=== PATIENT | female | born 1945 | race Caucasian/White ===

== ENCOUNTER 2020-09-26 10:26 | Inpatient (IN) ==
[2020-09-26] MEDS ORDERED: IOPAMIDOL 100 ML BOTTLE IV ONE (10:27)
[2020-09-26] MEDS ORDERED: ACETAMINOPHEN 325 MG TABLET PO ONE (10:45)
[2020-09-26] MEDS ORDERED: 0.9 % SODIUM CHLORIDE 1,000 ML IV ONE (10:45)
--- NOTE | 2020-09-26 10:54 | Emergency Department Note ---
Fall HPI General Chief Complaint: Fall Stated Complaint: abdominal pain Time Seen by Provider: 09/26/20 10:33 Source: patient Mode of arrival: ambulatory Limitations: no limitations History of Present Illness HPI Narrative: Narrative: 75-year-old female patient presents emergency department with chief complaint of diffuse abdominal pain after falling. Patient mentions she was stepping onto a stair (approximately 6-8 inches) when she became somewhat unstable and fell backwards. She landed onto asphalt. She does mention striking her head but denies loss of consciousness. Upon arrival, patient mentions diffuse abdominal pain worse to the lower aspects. She does mention lower back pain as well. She describes the pain is extending from her posterior to anterior. She denies any saddle anesthesia. She denies any bowel/bladder incontinence. ROS: Denies systemic illness, fever, sweats, chills. Denies headaches, tinnitus, or vision changes. Denies runny nose, sinus congestion, or cough. Denies shortness of breath. Denies retrosternal chest pain or palpitations. Denies nausea, vomiting, or diarrhea. Denies dysuria, hematuria, urinary frequency, or urinary urgency. Denies generalized or focal weakness. Related Data Home Medications Medication Instructions Recorded Confirmed enalapril maleate 20 mg tablet 20 mg PO QDAY 09/18/17 09/26/20 ferrous sulfate 324 mg (65 mg 324 mg PO QDAY tab 09/18/17 09/26/20 iron) tablet,delayed release zenia citrate-mag ox,aspart-D3 1 each PO DAILY 10/20/19 09/26/20 Previous Rx's Medication Instructions Recorded nitrofurantoin monohyd/m-cryst 100 mg PO Q12H 5 Days #10 cap 09/26/20 [Macrobid] Allergies Allergy/AdvReac Type Severity Reaction Status Date / Time No Known Drug Allergies Allergy Verified 10/20/19 07:02 Review of Systems ROS ROS Narrative: Narrative: All systems ED: reviewed and negative except as stated. [facility] Narrative Patient History Narrative: Narrative: Medical/Surgical/Family History All Active Problems (Updated 09/26/20 @ 12:56 by Emerson Lawson PA-C) Urinary tract infection (Acute) Concussion without loss of consciousness (Acute) At high risk for falls (Acute) Infiltrate of lung present on imaging of chest (Acute) Osteoporosis (Chronic) Schizophrenia (Chronic) Anemia (Chronic) Swelling of limb (Chronic) Hypertension, essential (Chronic) Breast cancer, stage 2 (Chronic ~2013) Medical History (Updated 09/26/20 @ 12:56 by Emerson Lawson PA-C) Anemia (Chronic) Breast cancer, stage 2 (Chronic ~2013) History of adenomatous polyp of colon (Inactive ~2013) none w/ colonoscopy 2019, Dr. Gann. History of chemotherapy (Inactive) for lobular carcinoma, met to 08/23 lymph nodes R axillary, 2013. Adjuvant docetaxel, cyclophosphamide; then Letrazole until 2019. History of radiation therapy (Acute) right side of chest; lobular carcinoma breast. Hypertension, essential (Chronic) Infiltrating ductal carcinoma of breast (Inactive ~11/2013) LEFT side (simultaneous lobular carcinoma right) Invasive lobular carcinoma of breast, stage 1 (Inactive ~11/2013) RIGHT side (simultaneous ductal carcinoma left) Lump or mass in breast (Resolved) Osteoporosis (Chronic) Noted in oncology notes; patient was on letrozole chemo suppressive until 2019. Schizophrenia (Chronic) Swelling of limb (Chronic) lymphedema - s/p mastectomy, lymphadenectomy R axilla. Surgical History (Updated 09/26/20 @ 10:55 by Cristobal Case DO) H/O colonoscopy (Chronic 10/20/19) negative; no polyps. Consider in 10 yrs if prognosis life expectancy warrants. History of tonsillectomy (Chronic) S/P mastectomy, bilateral (Chronic ~2013) Family History Brother Prostate cancer Other No pertinent family history Social History Smoking Status: Never smoker Alcohol Intake Frequency: does not drink Substance Use: does not use Exam Narrative Narrative: Narrative: General Limitations: no limitations General appearance: Present other (Well-developed, well-nourished, 75-year-old female patient laying semirecumbent on the emergency room gurney in no acute distress. She is afebrile with normal vital signs.) Head Head: Present atraumatic and normocephalic Expanded Head Head physical: Absent raccoon eyes and Mary's sign Eye Eye: Present normal appearance, PERRL and EOMI; Absent scleral icterus and conjunctival injection ENT ENT: Present normal oropharynx and mucous membranes moist Neck Neck: Present normal inspection, full ROM and trachea midline; Absent tenderness and lymphadenopathy Chest Chest: Present normal inspection and symmetric chest wall rise; Absent tenderness Respiratory Respiratory: Present normal lung sounds bilaterally; Absent respiratory distress, wheezes, stridor, accessory muscle use and prolonged expiratory phase Cardiovascular Cardiovascular: Present regular rate and normal rhythm; Absent systolic murmur and diastolic murmur Adbominal Abdominal: Present soft, tenderness and normal bowel sounds; Absent distention, guarding, rebound, rigidity, organomegaly and mass Expanded Abdominal Abdominal Tenderness: Present diffuse and moderate Extremities Extremities: Present full ROM and normal capillary refill; Absent normal inspection (Right upper extremity unilaterally edematous. This is known for the patient and unchanged from the fall.), tenderness and pedal edema Back Back: Present normal inspection and L-S tenderness Back 1 view image: 1. Area of pain. Expanded Neurological Patient oriented to: Present person, place and time Speech: Present fluid speech CRANIAL NERVES: EOM function (II, III, IV, ): Normal, facial sensation (V): Normal, facial palsy (VII): Normal, gag reflex (IX): Normal, spinal accessory function (XI): Normal and tongue deviation (XII): Normal Motor strength - LUE: 5/5 Motor strength - RUE: 5/5 Motor strength - LLE: 5/5 Motor strength - RLE: 5/5 UPPER MOTOR NEURON EXAM: pronator drift: Normal SENSORY EXAM UPPER EXTREMITY: Normal: light touch SENSORY EXAM LOWER EXTREMITY: Normal: light touch DTR: 2+: biceps (L), biceps (R), patellar (L) and patellar (R) Coma Scale Eye Opening: Spontaneous Coma Scale Motor Response: Obeys Commands Coma Scale Verbal Response: Oriented Coma Scale Total: 15 Psychiatric Psychiatric: Present normal affect and normal mood Skin Skin: Present warm (WNL), dry and normal color Course Course Course Narrative: The differential diagnosis of diffuse abdominal pain in the adult patient is broad and includes the following: Bowel obstruction, perforation of the GI tract, acute/chronic mesenteric ischemia, abdominal aortic aneurysm (AAA), inflammatory bowel disease (ulcerative colitis/Crohn disease), viral gastroenteritis, spontaneous bacterial peritonitis, colorectal cancer, celiac disease, ketoacidosis, adrenal insufficiency, foodborne illness, IBS, constipation, diverticulosis, and lactose intolerance. This patient differential diagnosis would also include mechanical musculoskeletal injury such as vertebral compression fracture or rib fracture. Patient sustained a mechanical fall from standing. She was elevated approximately 6-8 inches and fell backwards onto asphalt. She does mention striking her head but not losing consciousness. She is complaining of back/abdominal pain. She mentions that the pain is extending from her posterior to anterior. We are going to get CT scan of her head without contrast. We are going to obtain a contrast-enhanced CT scan of her abdomen/pelvis look for a ca use of her pain. I will check her kidney functions prior to this study to determine if they are starting to handle contrast. Will order some screening laboratory studies. Patient was given normal saline 1000 mL of the bolus. She normally uses acetaminophen for pain so we will start there with 975 mg p.o. Reevaluation(s) Reevaluation #1: A review the patient's diagnostics show the following: CBC within normal limits. Chemistry panel BUN 30, glucose 136, all others normal limits. UA showing clear yellow urine specific gravity 1.023, positive ketonuria, positive nitrites, positive leukocyte Estrace, positive WBCs, mo derate bacteria, and positive mucus. This sample be sent for culture. Noncontrast head CT scan showing a negative study. Contrast-enhanced CT scan of the chest, abdomen, pelvis showing large hiatal hernia containing stomach small bowel, mild groundglass opacity within the right lower lobe and right upper lobe. Radiologist does mention clinical correlation for Covid pneumonia recommended. There is no posttraumatic abnormality seen. After reviewing all the data a rapid Covid swab was obtained. Time: 12:09 Reevaluation #2: Rapid Covid and influenza swabs were negative. After reviewing all the data home at time does appear the patient has during UTI. I concerning the's chest CT scan findings patient had a negative Covid and influenza swab. She is asymptomatic, afebrile, and without cough. She is showing no outward signs of pneumonia at this time. It was thought best to treat her for the UTI which can make elderly people somewhat unsteady. It was recommended that she have repeat chest imaging within a week or so to ensure that the infiltrates have not changed. At this time patient has been to be started on Macrobid 100 mg twice daily for a 5-day course until the results of her culture and sensitivity are known. She was encouraged to use some form of assistive devices whether be a cane or a walker at all times while up moving about. She continues to complain of incredible pain throughout her back with movement. I explained my hesitancy of prescribing her something stronger (narcotics) for pain due to the increased risk of falling. She was encouraged to continue taking OTC analgesics for her pain. Patient was told to follow-up with her primary care provider within the next week or so. She was strongly encouraged to return to the emergency department at any time if she were to change or worsen in someway. Patient verbalized understanding. She has remained stable.her entire time in the emergency department. Her last set of vital signs are as follows: Blood pressure 141/82, heart rate 87, SPO2 92% on room air. Patient is going to be discharged with following plan. Vital Signs Vital signs: Vital Signs Temperature 97.2 F 09/26/20 10:26 Pulse Rate 92 H 09/26/20 10:26 Respiratory Rate 18 09/26/20 10:26 Blood Pressure 155/81 09/26/20 10:26 Pulse Oximetry (%) 92 09/26/20 10:26 Temperature 97.2 F 09/26/20 10:26 Pulse Rate 83 09/26/20 12:01 Respiratory Rate 18 09/26/20 10:26 Blood Pressure 153/83 09/26/20 12:01 Pulse Oximetry (%) 93 09/26/20 12:01 MDM MDM Narrative Medical decision making narrative: Narrative: Lab Data Lab results reviewed: Yes I reviewed the patient's lab results. Result diagrams: 09/26/20 10:54 Labs: Lab Results 09/26/20 09/26/20 09/26/20 Range/Units 10:54 10:54 11:00 WBC 7.7 (4.5-11.0) K/mcL RBC 4.57 (4.00-5.20) M/mcL Hgb 14.2 (12.0-15.0) g/dL Hct 43.3 (36.0-48.0) % POC Hct 47 (36-48) % MCV 94.7 (80.0-100.0) fL MCH 31.1 (26.0-34.0) pg MCHC 32.8 (31.0-36.0) g/dL RDW 12.1 (11.5-14.5) % Plt Count 189 (140-440) K/mcL MPV 10.8 H (7.4-10.4) fL Neut % (Auto) 72.9 (38.0-78.0) % Lymph % (Auto) 20.4 (15.0-49.0) % [place] % (Auto) 5.8 (1.0-12.0) % Eos % (Auto) 0.5 (0.0-7.0) % Baso % (Auto) 0.4 (0.0-2.0) % Lymph # (Auto) 1.57 (1.50-4.80) K/mcL [place] # (Auto) 0.45 (0.10-0.90) K/mcL Eos # (Auto) 0.04 (0.00-0.70) K/mcL Baso # (Auto) 0.03 (0.00-0.20) K/mcL Absolute Neutrophils 5.61 (1.80-8.00) K/mcL POC Sodium 140 (133-145) mEq/L POC Potassium 4.1 (3.3-5.1) mEql/L POC Chloride 105 (96-108) mEq/L POC Total CO2 28 (22-30) mmol/L POC BUN 30 H (6-20) mg/dL POC Creatinine 0.7 (0.6-1.2) mg/dL POC Glucose 136 H (70-105) mg/dL POC WB Ioniz Calcium 1.18 (1.16-1.32) mmEq/L Urine Color Yellow Urine Appearance Clear (Clear) Urine pH 5.0 (5.0-9.0) Ur Specific [place] 1.023 (1.000-1.035) Urine Protein Negative (Negative) mg/dL Urine Glucose (UA) Negative (Negative) mg/dL Urine Ketones 5 A (Negative) mg/dL Urine Occult Blood 0.03 (Negative) mg/dL Urine Nitrate Pos A (Negative) Urine Bilirubin Negative (Negative) mg/dL Urine Urobilinogen Negative mg/dL Ur Leukocyte Esterase 75 A (Negative) /ug Urine RBC 5 H (0-3) /hpf Urine WBC 73 H (0-4) /hpf Ur Squamous Epith Cells < 1 (0-4) /hpf Urine Bacteria Mod A (0) /hpf Hyaline Casts 2 (0-2) /lph Urine Mucus Many A (None) /hpf Ur Culture Indicated? yes Radiology Data Radiology results reviewed: Yes I reviewed the patient's radiology results. Radiology results narrative: Ordering Physician: Emerson Lawson PA-C Date of Service: 09/26/20 Procedure(s): CT head/brain wo con Accession Number(s): [id number] INDICATION: Fall onto asphalt and hit head COMPARISON: None. TECHNIQUE: Axial noncontrast-enhanced images through the brain. Sagittally and coronally reformatted images. FINDINGS: Cerebral hemispheres:Negative. No intra-axial abnormality. No intra-axial hematoma. No localized mass effect. Brain volume is within normal limits. No hydrocephalus Brainstem and cerebellum:No intra-axial abnormality Extra-axial:No acute hemorrhage. No subdural or epidural hematoma. No subarachnoid hemorrhage. Basilar cisterns are normal Calvarial:No calvarial fracture. No lytic lesion Temporal bones are negative. No destructive lesions Soft tissue, orbits, sinuses:Orbits and visualized facial soft tissues and paranasal sinuses are negative IMPRESSION: Negative noncontrast enhanced brain CT scan Ordering Physician: Cristobal Case D.O. Date of Service: 09/26/20 Procedure(s): CT chest abdomen pelvis w con Accession Number(s): [id number] INDICATION: fall COMPARISON: None. TECHNIQUE: Axial images were obtained through the chest,abdomen and pelvis. Sagittally and coronally reformatted images. 80ml Isovue 370 injected intravenously. FINDINGS: Chest CT: Lungs:Small focal groundglass infiltrate in the right upper lobe. 2nd small focus of groundglass density in the superior segment of the right lower lobe. Findings are nonspecific. Covid pneumonia is not excluded. No other focal pulmonary parenchymal infiltrate or contusion. There is left lower lobe volume loss and probable mild bronchiectasis. This is probably secondary to compression from a large hiatal hernia Mediastinum:No mediastinal hematoma. Thoracic aorta is negative. No dissection or aneurysmal dilatation. Proximal left subclavian artery, left common carotid artery, innominate artery are markedly tortuous. Proximal right subclavian artery is tortuous. There is no stenosis. There is a large hiatal hernia which contains most of the stomach. There is some jejunum within the hernia. Heart:There is cardiomegaly. No pericardial effusion. There is coronary artery calcification Pleura:There is no pneumothorax or hemothorax Axilla, supraclavicular regions, chest wall:No chest wall hematoma. No acute or focal abnormality. Musculoskeletal:No thoracic compression fracture. No acute rib fracture. There are healed fractures of the left 3rd and 4th ribs. Scapula and clavicles are negative. Sternum is normal. There is exaggerated thoracic kyphosis Abdomen/Pelvis: Liver:No hepatic injury. No hepatic laceration or fracture. No perihepatic hemorrhage Gallbladder, bilary:No calcified gallstones. No gallbladder wall thickening or pericholecystic fluid. No dilated bile ducts Spleen:Spleen is negative. No splenic injury. No perisplenic hemorrhage. Normal enhancement of splenic and portal veins Pancreas:No pancreatic mass. No peripancreatic abnormality. No retroperitoneal abnormality Adrenal glands:Negative Kidneys, ureters, bladder: There is a 4 cm left renal cyst. 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 No posttraumatic abnormality. No renal injury. No perinephric hemorrhage. There is no hydronephrosis. There is no hydroureter. Bladder is negative. No evidence for bladder rupture Gastrointestinal:No detectable colonic mass. There is no diverticulitis. Small bowel is negative. No mechanical small bowel obstruction. Stomach and duodenum are within normal limits Appendix: The appendix is not well visualized. No evidence for appendicitis. Vascular:There is atherosclerotic calcification. No abdominal aortic aneurysm. Celiac trunk and superior mesenteric artery are negative Lymphatic:No pathologic retroperitoneal or mesenteric adenopathy Mesentery, peritoneum:No free intraperitoneal fluid. No intra-abdominal abscess. There is no hemoperitoneum or pneumoperitoneum Reproductive:Uterus is anteflexed. No adnexal mass Musculoskeletal:No lumbar compression fractures. There is degenerative facet arthropathy. Sacrum and pelvis are negative IMPRESSION: 1. Large hiatal hernia containing stomach and small bowel 2. Mild groundglass opacity within the right lower lobe and right upper lobe. Clinical correlation for covid pneumonia recommended 3. No posttraumatic abnormality The exam was performed using radiation dose optimization techniques including, but not limited to, automated exposure control, adjustment of the mA and/or kV according to patient size and use of iterative reconstruction technique. Interpreted and Authenticated by: Servando Toro 09/26/20 Discharge Plan Patient/Caregiver Discharge Instructions Pt seen by MAINTENANCE INSPECTOR/PA only: Yes Clinical Impression: At high risk for falls, Infiltrate of lung present on imaging of chest Urinary tract infection Qualifiers: Urinary tract infection type: site unspecified Hematuria presence: without hematuria Qualified Code(s): N39.0 - Urinary tract infection, site not specified Concussion without loss of consciousness Qualifiers: Encounter type: initial encounter Qualified Code(s): S06.0X0A - Concussion without loss of consciousness, initial encounter Instructions: Concussion (ED), Urinary Tract Infection in Older Adults (ED) Activity Restrictions/Additional Instructions: General Information: - Thank you for letting us take care of you today. - Please understand that the examination and treatment that you received here in our emergency department was on an emergency basis only. Although the care you did receive from us here in the emergency department was of the highest quality, it certainly does not take the place of regular medical care obtained from your primary care provider (PCP). - Rest for the next 23 days. - Afterward, perform activity as tolerated. - Stay well hydrated. - Eat a well balanced diet. Medications: - Macrobid 100 mg, 1 tablet twice daily x5 days. --> We may contact you if we need to change the antibiotic based on your culture and sensitivity report. - OTC acetaminophen 500 mg, 2 tablets every 6-8 hours as needed for pain or fever. - OTC ibuprofen 200 mg, 2 tablets every 8 hours as needed for pain or fever. - Please continue to take all of your previously prescribed, chronic medications, as directed. Follow up: - Please see your Primary Care Provider in the next 7-10 days for an emergency room follow-up visit. I would recommend that repeat chest x-ray be obtained to evaluate whether or not the findings in your chest have changed or worsened. - You are always welcome to return to the emergency department AT ANY TIME if you change or worsen in some way. Patient Disposition: Home, Self-Care Condition: Fair Follow up with: Danisha Perez MD [Primary Care Provider] - Prescriptions: New nitrofurantoin monohyd/m-cryst [Macrobid] 100 mg capsule 100 mg PO Q12H 5 Days Qty: 10 RF: 0 No Action ferrous sulfate 324 mg (65 mg iron) tablet,delayed release (DR/EC) 324 mg PO QDAY RF: 0 enalapril maleate 20 mg tablet 20 mg PO QDAY RF: 0 zenia citrate-mag ox,aspart-D3 1 EACH wafer 1 each PO DAILY RF: 0
[2020-09-26 11:03] LABS: POC Blood Urea Nitrogen 30 mg/dL (6-20); POC CO2 28 mmol/L (22-30); POC Calcium, Ionized 1.18 mmEq/L (1.16-1.32); POC Chloride 105 mEq/L (96-108); POC Creatinine 0.7 mg/dL (0.6-1.2); POC Glucose, Random 136 mg/dL (70-105); POC Hematocrit 47 % (36-48); POC Potassium 4.1 mEql/L (3.3-5.1); POC Sodium 140 mEq/L (133-145)
--- NOTE | 2020-09-26 11:34 | Cat Scan Report ---
INDICATION: Fall onto asphalt and hit head COMPARISON: None. TECHNIQUE: Axial noncontrast-enhanced images through the brain. Sagittally and coronally reformatted images. FINDINGS: Cerebral hemispheres:Negative. No intra-axial abnormality. No intra-axial hematoma. No localized mass effect. Brain volume is within normal limits. No hydrocephalus Brainstem and cerebellum:No intra-axial abnormality Extra-axial:No acute hemorrhage. No subdural or epidural hematoma. No subarachnoid hemorrhage. Basilar cisterns are normal Calvarial:No calvarial fracture. No lytic lesion Temporal bones are negative. No destructive lesions Soft tissue, orbits, sinuses:Orbits and visualized facial soft tissues and paranasal sinuses are negative IMPRESSION: Negative noncontrast enhanced brain CT scan The exam was performed using radiation dose optimization techniques including, but not limited to, automated exposure control, adjustment of the mA and/or kV according to patient size and use of iterative reconstruction technique. Interpreted and Authenticated by: Servando Toro 09/26/20
[2020-09-26 11:41] LABS: Basophils # (Auto) 0.03 K/mcL (0.00-0.20); Basophils % (Auto) 0.4 % (0.0-2.0); Eosinophils # (Auto) 0.04 K/mcL (0.00-0.70); Eosinophils % (Auto) 0.5 % (0.0-7.0); Hematocrit 43.3 % (36.0-48.0); Hemoglobin 14.2 g/dL (12.0-15.0); Lymphocytes # (Auto) 1.57 K/mcL (1.50-4.80); Lymphocytes % (Auto) 20.4 % (15.0-49.0); Mean Cell Volume 94.7 fL (80.0-100.0); Mean Corpuscular HGB Conc 32.8 g/dL (31.0-36.0); Mean Platelet Volume 10.8 fL (7.4-10.4); Monocytes # (Auto) 0.45 K/mcL (0.10-0.90); Monocytes % (Auto) 5.8 % (1.0-12.0); Neutrophils % (Auto) 72.9 % (38.0-78.0); Platelet Count 189 K/mcL (140-440); RBC 4.57 M/mcL (4.00-5.20); Red Cell Distribution Width 12.1 % (11.5-14.5); WBC 7.7 K/mcL (4.5-11.0)
--- NOTE | 2020-09-26 11:47 | Cat Scan Report ---
INDICATION: fall COMPARISON: None. TECHNIQUE: Axial images were obtained through the chest,abdomen and pelvis. Sagittally and coronally reformatted images. 80ml Isovue 370 injected intravenously. FINDINGS: Chest CT: Lungs:Small focal groundglass infiltrate in the right upper lobe. 2nd small focus of groundglass density in the superior segment of the right lower lobe. Findings are nonspecific. Covid pneumonia is not excluded. No other focal pulmonary parenchymal infiltrate or contusion. There is left lower lobe volume loss and probable mild bronchiectasis. This is probably secondary to compression from a large hiatal hernia Mediastinum:No mediastinal hematoma. Thoracic aorta is negative. No dissection or aneurysmal dilatation. Proximal left subclavian artery, left common carotid artery, innominate artery are markedly tortuous. Proximal right subclavian artery is tortuous. There is no stenosis. There is a large hiatal hernia which contains most of the stomach. There is some jejunum within the hernia. Heart:There is cardiomegaly. No pericardial effusion. There is coronary artery calcification Pleura:There is no pneumothorax or hemothorax Axilla, supraclavicular regions, chest wall:No chest wall hematoma. No acute or focal abnormality. Musculoskeletal:No thoracic compression fracture. No acute rib fracture. There are healed fractures of the left 3rd and 4th ribs. Scapula and clavicles are negative. Sternum is normal. There is exaggerated thoracic kyphosis Abdomen/Pelvis: Liver:No hepatic injury. No hepatic laceration or fracture. No perihepatic hemorrhage Gallbladder, bilary:No calcified gallstones. No gallbladder wall thickening or pericholecystic fluid. No dilated bile ducts Spleen:Spleen is negative. No splenic injury. No perisplenic hemorrhage. Normal enhancement of splenic and portal veins Pancreas:No pancreatic mass. No peripancreatic abnormality. No retroperitoneal abnormality Adrenal glands:Negative Kidneys, ureters, bladder: There is a 4 cm left renal cyst. 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 No posttraumatic abnormality. No renal injury. No perinephric hemorrhage. There is no hydronephrosis. There is no hydroureter. Bladder is negative. No evidence for bladder rupture Gastrointestinal:No detectable colonic mass. There is no diverticulitis. Small bowel is negative. No mechanical small bowel obstruction. Stomach and duodenum are within normal limits Appendix: The appendix is not well visualized. No evidence for appendicitis. Vascular:There is atherosclerotic calcification. No abdominal aortic aneurysm. Celiac trunk and superior mesenteric artery are negative Lymphatic:No pathologic retroperitoneal or mesenteric adenopathy Mesentery, peritoneum:No free intraperitoneal fluid. No intra-abdominal abscess. There is no hemoperitoneum or pneumoperitoneum Reproductive:Uterus is anteflexed. No adnexal mass Musculoskeletal:No lumbar compression fractures. There is degenerative facet arthropathy. Sacrum and pelvis are negative IMPRESSION: 1. Large hiatal hernia containing stomach and small bowel 2. Mild groundglass opacity within the right lower lobe and right upper lobe. Clinical correlation for covid pneumonia recommended 3. No posttraumatic abnormality The exam was performed using radiation dose optimization techniques including, but not limited to, automated exposure control, adjustment of the mA and/or kV according to patient size and use of iterative reconstruction technique. The exam was performed using radiation dose optimization techniques including, but not limited to, automated exposure control, adjustment of the mA and/or kV according to patient size and use of iterative reconstruction technique. Interpreted and Authenticated by: Servando Toro 09/26/20
[2020-09-26 12:14] LABS: Appearance,Urine CLEAR (Clear); Bacteria,Urine MOD /hpf (0); Bilirubin,Urine Negative (Negative); Color,Urine YELLOW; Culture Indicated,Urine yes; Glucose,Urine (UA) Negative (Negative); Ketones,Urine 5 mg/dL (Negative); Leukocyte Esterase,Urine 75 /ug (Negative); Mucus,Urine MANY /hpf; Nitrate,Urine POS (Negative); Protein,Urine Negative (Negative); Specific Gravity,Urine 1.023 (1.000-1.035); Urine Blood 0.03 mg/dL (Negative); Urine Hyaline Cast 2 /lph (0-2); Urine RBC 5 /hpf (0-3); Urine Squamous Epithelial Cell < 1 /hpf (0-4); Urine WBC 73 /hpf (0-4); Urobilinogen,Urine Negative
[2020-09-26] MEDS ORDERED: morphine 2 MG/ML VIAL IV ONE (13:40)
--- NOTE | 2020-09-26 14:27 | Internal Med History&Physical ---
HPI History of Present Illness Patient information: Note initiated : 09/26/20 at 2:26 pm Service Date, if different from initiated Date: [] Patient: Dorota Reid a 75 y/o F admitted on for abdominal pain. Chief Complaint: Fall History of present illness: Ms. Reid is a 75 year old F with a history of hypertension/iron deficient anemia who presents to the ER after she fell backwards on her back while trying to step on the stairs. She hit her head and back however did not lose consciousness. There was no evident seizure episode or lightheadedness dizziness. She however cannot recollect how she fell other than getting off balance. Initial work-up in the ER was unremarkable with a headache and CT spine for any fractures however patient continues to complain of pain around the back and abdomen. Also UA consistent with pyuria. Patient was started on antibiotics. Based on negative imaging patient was advised discharge home however she was found to be considerably weak unable to get out of bed without full assistance. Due to high risk subsequent fall and risk of injuries hospital service was consulted until a safe discharge plan can be instituted. Subsequently hospitalist service was consulted for admission. Patient has a le gal guardian and her brother David was unable during my visit. At the time of my visit patient is alert but in moderate distress. She is able to answer most the questions and endorses history as above. She denies fever, diarrhea, dysuria, joint pain, rash, headache endorses to occasional chills and abdominal discomfort. She is independent and receives help from her brother. Does not drive. Review of systems 10 point review system was performed and is negative except for ones discussed above PFSH PFSH All Active Problems (Updated 09/26/20 @ 12:56 by Emerson Lawson PA-C) Urinary tract infection (Acute) Concussion without loss of consciousness (Acute) At high risk for falls (Acute) Infiltrate of lung present on imaging of chest (Acute) Osteoporosis (Chronic) Schizophrenia (Chronic) Anemia (Chronic) Swelling of limb (Chronic) Hypertension, essential (Chronic) Breast cancer, stage 2 (Chronic ~2013) Medical History (Updated 09/26/20 @ 12:56 by Emerson Lawson PA-C) Anemia (Chronic) Breast cancer, stage 2 (Chronic ~2013) History of adenomatous polyp of colon (Inactive ~2013) none w/ colonoscopy 2019, Dr. Gann. History of chemotherapy (Inactive) for lobular carcinoma, met to 08/23 lymph nodes R axillary, 2013. Adjuvant docetaxel, cyclophosphamide; then Letrazole until 2019. History of radiation therapy (Acute) right side of chest; lobular carcinoma breast. Hypertension, essential (Chronic) Infiltrating ductal carcinoma of breast (Inactive ~11/2013) LEFT side (simultaneous lobular carcinoma right) Invasive lobular carcinoma of breast, stage 1 (Inactive ~11/2013) RIGHT side (simultaneous ductal carcinoma left) Lump or mass in breast (Resolved) Osteoporosis (Chronic) Noted in oncology notes; patient was on letrozole chemo suppressive until 2019. Schizophrenia (Chronic) Swelling of limb (Chronic) lymphedema - s/p mastectomy, lymphadenectomy R axilla. Surgical History (Updated 09/26/20 @ 10:55 by Cristobal Case DO) H/O colonoscopy (Chronic 10/20/19) negative; no polyps. Consider in 10 yrs if prognosis life expectancy warrants. History of tonsillectomy (Chronic) S/P mastectomy, bilateral (Chronic ~2013) Family History Brother Prostate cancer Other No pertinent family history Social History (Updated 08/04/17 @ 11:10 by Pebbles Crook) marital status: smoking status: Never smoker alcohol intake frequency: does not drink substance use type: does not use MEDS/ALLERGIES Home Medications and Allergies Home Medications Medication Instructions Recorded Confirmed Type enalapril maleate 20 mg tablet 20 mg PO QDAY 09/18/17 09/26/20 History ferrous sulfate 324 mg (65 mg 324 mg PO QDAY tab 09/18/17 09/26/20 History iron) tablet,delayed release zenia citrate-mag ox,aspart-D3 1 each PO DAILY 10/20/19 09/26/20 History nitrofurantoin monohyd/m-cryst 100 mg PO Q12H 5 Days #10 cap 09/26/20 Rx [Macrobid] Allergies Allergy/AdvReac Type Severity Reaction Status Date / Time No Known Drug Allergies Allergy Verified 10/20/19 07:02 EXAM Constitutional Vitals: Temp Pulse Resp BP Pulse Ox 97.2 F 90 18 147/79 91 09/26/20 10:26 09/26/20 14:09 09/26/20 10:26 09/26/20 14:09 09/26/20 14:09 Anxious and distressed in pain however alert Head normocephalic Oral cavity moist No ear nose discharge, hard of hearing Eye movement symmetrical Neck supple no lymphadenopathy S1-S2 regular Nonlabored breathing Nondistended minimally tender suprapubic area Lower extremity no cyanosis clubbing or joint swelling Skin no suspicious lesion Psych no hallucination Neuro normal higher function DATA Data Completed and Pending Labs: Labs from last 24 hours 09/26/20 09/26/20 09/26/20 11:00 10:54 10:54 WBC 7.7 RBC 4.57 Hgb 14.2 Hct 43.3 POC Hct 47 MCV 94.7 MCH 31.1 MCHC 32.8 RDW 12.1 Plt Count 189 MPV 10.8 H Neut % (Auto) 72.9 Lymph % (Auto) 20.4 [place] % (Auto) 5.8 Eos % (Auto) 0.5 Baso % (Auto) 0.4 Lymph # (Auto) 1.57 [place] # (Auto) 0.45 Eos # (Auto) 0.04 Baso # (Auto) 0.03 Absolute Neutrophils 5.61 POC Sodium 140 POC Potassium 4.1 POC Chloride 105 POC Total CO2 28 POC BUN 30 H POC Creatinine 0.7 POC Glucose 136 H POC WB Ioniz Calcium 1.18 Urine Color Yellow Urine Appearance Clear Urine pH 5.0 Ur Specific [place] 1.023 Urine Protein Negative Urine Glucose (UA) Negative Urine Ketones 5 A Urine Occult Blood 0.03 Urine Nitrate Pos A Urine Bilirubin Negative Urine Urobilinogen Negative Ur Leukocyte Esterase 75 A Urine RBC 5 H Urine WBC 73 H Ur Squamous Epith Cells < 1 Urine Bacteria Mod A Hyaline Casts 2 Urine Mucus Many A Ur Culture Indicated? yes A/P Narrative A/P Narrative: * Fall with back contusion. PT OT/gait and safety eval/maintain fall risk * Lower back pain secondary to fall. Continue pain management on NSAIDs/opioids as indicated, lidocaine patch * Uncomplicated UTI initiate antibiotic coverage * Generalized weakness and inability to take care of self. PT OT/case management coordinate SNF transfer * History of hypertension continue Toprol * Prophylaxis Heparin Plan * Observation admit * Pain management * Aggressive PT OT * Fall risk * Pre-existing medical condition management home meds * Case management to coordinate SNF transfer due to profound self-care deficit Time Spent With Patient Time: Total time spent is greater than 50% in coordination of care (as documented) at patient's floor/unit and/or counseling patient:
[2020-09-26] MEDS ORDERED: POLYETHYLENE GLYCOL 3350 17 GM PACKET PO PRN (15:06)
[2020-09-26] MEDS ORDERED: ONDANSETRON 4 MG ODT TABLET SL PRN (15:06)
[2020-09-26] MEDS ORDERED: MAGNESIUM SULFATE 2 GM/50 ML BAG IV PRN (15:06)
[2020-09-26] MEDS ORDERED: guaiFENesin/CODEINE 10 ML UDC PO PRN (15:06)
[2020-09-26] MEDS ORDERED: POTASSIUM CHLORIDE 40 MEQ in DEXTROSE 5% IN WATER 500 ML IV PRN (15:06)
[2020-09-26] MEDS ORDERED: ONDANSETRON 4 MG/2 ML VIAL IV PRN (15:06)
[2020-09-26] MEDS ORDERED: BISACODYL 10 MG SUPP.RECT PR PRN (15:06)
[2020-09-26] MEDS ORDERED: MELATONIN 3 MG TABLET PO PRN (15:06)
[2020-09-26] MEDS ORDERED: ACETAMINOPHEN 650 MG/65 ML BAG IV PRN (15:06)
[2020-09-26] MEDS ORDERED: POTASSIUM CHLORIDE 20 MEQ PACKET PO PRN (15:06)
[2020-09-26] MEDS: cefTRIAXone 2 GM in DEXTROSE 5% IN WATER 50 ML IV SCH (17:24)
[2020-09-26] MEDS: HEPARIN 5,000 UNIT/ML VIAL SQ SCH (20:33)
[2020-09-26] MEDS: DOCUSATE SODIUM 100 MG CAPSULE PO SCH (20:33)
[2020-09-26] MEDS: SENNOSIDES/DOCUSATE SODIUM 1 TAB TABLET PO SCH (20:33)
[2020-09-26] MEDS: 0.9 % SODIUM CHLORIDE 10 ML SYRINGE IV SCH (20:34)
[2020-09-26] MEDS: traMADol 50 MG TABLET PO PRN (20:35)
[2020-09-27] MEDS: traMADol 50 MG TABLET PO PRN ×2 (05:27→19:48)
[2020-09-27] MEDS: 0.9 % SODIUM CHLORIDE 10 ML SYRINGE IV SCH ×4 (05:29→20:01)
[2020-09-27 06:54] LABS: Basophils # (Auto) 0.02 K/mcL (0.00-0.20); Basophils % (Auto) 0.2 % (0.0-2.0); Eosinophils # (Auto) 0.02 K/mcL (0.00-0.70); Eosinophils % (Auto) 0.2 % (0.0-7.0); Hematocrit 42.7 % (36.0-48.0); Hemoglobin 13.9 g/dL (12.0-15.0); Lymphocytes # (Auto) 1.39 K/mcL (1.50-4.80); Lymphocytes % (Auto) 15.4 % (15.0-49.0); Mean Cell Volume 95.7 fL (80.0-100.0); Mean Corpuscular HGB Conc 32.6 g/dL (31.0-36.0); Mean Platelet Volume 10.8 fL (7.4-10.4); Monocytes # (Auto) 0.84 K/mcL (0.10-0.90); Monocytes % (Auto) 9.3 % (1.0-12.0); Neutrophils % (Auto) 74.9 % (38.0-78.0); Platelet Count 169 K/mcL (140-440); RBC 4.46 M/mcL (4.00-5.20); Red Cell Distribution Width 11.9 % (11.5-14.5)
[2020-09-27 07:24] LABS: ALT/SGPT 24 U/L (<40); AST/SGOT 25 U/L (<32); Albumin 3.9 gm/dL (3.2-5.2); Albumin/Globulin Ratio 1.3 (1.0-2.3); Alkaline Phosphatase 54 U/L (39-117); Bilirubin,Direct < 0.2 mg/dL (<0.3); Bilirubin,Total 0.5 mg/dL (0.1-1.0); Blood Urea Nitrogen 16 mg/dL (8-23); Calcium 8.8 mg/dL (8.6-10.4); Carbon Dioxide 22 mmol/L (22-30); Chloride 103 mmol/L (96-108); Glomerular Filtration Rate 88; Glucose 108 mg/dL (70-105); Lactate Dehydrogenase 265 U/L (135-225); Phosphorous 2.7 mg/dL (2.5-4.5); Triglycerides 73 mg/dL (<150); Uric Acid 3.7 mg/dL (2.5-8.0)
[2020-09-27] MEDS: FERROUS SULFATE 325 MG TABLET PO SCH (09:02)
[2020-09-27] MEDS: LISINOPRIL 20 MG TABLET PO SCH (09:02)
[2020-09-27] MEDS: MULTIVIT,THER IRON,CA,FA & MIN 1 TABLET PO SCH (09:02)
[2020-09-27] MEDS: DOCUSATE SODIUM 100 MG CAPSULE PO SCH ×2 (09:03→19:47)
[2020-09-27] MEDS: CALCIUM W/VIT D3 500 MG TABLET PO SCH (09:03)
[2020-09-27] MEDS: HEPARIN 5,000 UNIT/ML VIAL SQ SCH ×2 (09:05→19:47)
[2020-09-27] MEDS: cefTRIAXone 2 GM in DEXTROSE 5% IN WATER 50 ML IV SCH (09:06)
[2020-09-27] MEDS ORDERED: FLU VACC QS2020-21(6MOS UP)/PF 60 MCG/0.5 ML SYRINGE IM ONE (10:00)
[2020-09-27] MEDS: AZITHROMYCIN 500 MG in DEXTROSE 5% IN WATER 250 ML IV SCH (13:22)
[2020-09-27] MEDS: ACETAMINOPHEN 325 MG TABLET PO PRN ×2 (13:35→17:30)
--- NOTE | 2020-09-27 13:45 | Internal Med Progress Note ---
SUBJECTIVE Subjective Patient information: Note initiated : 09/27/20 at 1:41 pm Service Date, if different from initiated Date: [] Patient: Dorota Reid a 75 y/o F admitted on 09/26/20 for abdominal pain. Chief Complaint: [] Interval history: Ms. Reid is a 75 year old F with a history of hypertension/iron deficient anemia who presents to the ER after she fell backwards on her back while trying to step on the stairs. She hit her head and back however did not lose consciousness. There was no evident seizure episode or lightheadedness dizziness. She however cannot recollect how she fell other than getting off balance. Initial work-up in the ER was unremarkable with a headache and CT spine for any fractures however patient continues to complain of pain around the back and abdomen. Also UA consistent with pyuria. Patient was started on antibiotics. Based on negative imaging patient was advised discharge home however she was found to be considerably weak unable to get out of bed without full assistance. Due to high risk subsequent fall and risk of injuries hospital service was consulted until a safe discharge plan can be instituted. Patient has a legal guardian and her brother David was unable during my visit. At the time of my visit patient is alert but in moderate distress. She is able to answer most the questions and endorses history as above. She denies fever, diarrhea, dysuria, joint pain, rash, headache endorses to occasional chills and abdominal discomfort. She is independent and receives help from her brother. Does not drive. 09/27-patient is morning was found to be hypoxic with sats around 90%. Antibio tic escalated to cover coverage acquired pathogens. Improving weakness. Ongoing therapies. White count 9000. Urine cultures pending. Continue therapies. Anticipate discharge in 24 hours pending clinical improvement to home with family help. Constitutional Vitals: Vital Signs Temp Pulse Resp BP Pulse Ox 99.8 F H 92 H 20 150/87 90 09/27/20 07:10 09/27/20 07:10 09/27/20 07:10 09/27/20 07:10 09/27/20 08:00 Period Temp Pulse Resp BP Sys/Sears Pulse Ox Last 24 Hr 97.2 F-99.8 F 83-99 16-20 126-168/73-90 90-97 Intake and Output 09/26/20 09/27/20 09/27/20 21:59 05:59 13:59 Intake Total 1050 225 100 Output Total 750 251 Balance 300 -26 100 Weight 69.944 kg alert and respond to commands Minimal labored breathing Sats 90% on room air now on 1 L oxygen No anxiety Intake & Output: Intake & Output 09/26/20 09/27/20 09/27/20 21:59 05:59 13:59 Intake Total 1050 225 100 Output Total 750 251 Balance 300 -26 100 Weight 69.944 kg Intake: IV 1050 Sodium Chloride 0.9% 1,000 ml @ 1000 Wide Open IV [facility] Rx#: [id number] Rocephin 2 gm In Dextrose 5% in 50 Water 50 ml @ 100 mls/hr IV Q24H [facility] Rx#:[id number] Oral 225 100 Output: Void Amount 750 250 # of times incontinent of urine 1 Other: Meal Breakfast Percent of Meal Consumed Refused Feeding Ability Independent Urine Appearance Clear Clear Clear Urine Color Bright Yellow Bright Yellow Bright Yellow Urine Odor Strong Strong OBJ DATA Labs CBC & Chem 7: 09/27/20 05:00 09/27/20 05:34 Labs: Abnormal Lab Results 09/27/20 09/27/20 09/26/20 05:34 05:00 11:00 MPV 10.8 H Lymph # (Auto) 1.39 L POC BUN Glucose 108 H POC Glucose Lactate Dehydrogenase 265 H Urine Ketones 5 A Urine Nitrate Pos A Ur Leukocyte Esterase 75 A Urine RBC 5 H Urine WBC 73 H Urine Bacteria Mod A Urine Mucus Many A 09/26/20 09/26/20 10:54 10:54 MPV 10.8 H Lymph # (Auto) POC BUN 30 H Glucose POC Glucose 136 H Lactate Dehydrogenase Urine Ketones Urine Nitrate Ur Leukocyte Esterase Urine RBC Urine WBC Urine Bacteria Urine Mucus Meds: Medications Acetaminophen (Tylenol) 650 mg PO Q4-6HP PRN; Protocol PRN Reason: Per Pain Protocol/Fever > 101 Last Admin: 09/27/20 13:35 Dose: 650 mg Documented by: Bisacodyl (Dulcolax) 10 mg [place] Q2-3DAYS PRN PRN Reason: Constipation Calcium/Vitamin D (Calcium W/Vit D3) 500 mg PO DAILY [facility] Last Admin: 09/27/20 09:03 Dose: 500 mg Documented by: Docusate Sodium (Colace) 100 mg PO BID [facility] Last Admin: 09/27/20 09:03 Dose: 100 mg Documented by: Ferrous Sulfate (Ferrous Sulfate) 325 mg PO [facility] Last Admin: 09/27/20 09:02 Dose: 325 mg Documented by: Guaifenesin/Codeine Phosphate (Robitussin Ac) 10 ml PO Q4HP PRN PRN Reason: Cough Heparin Sodium (Porcine) (Heparin) 5,000 unit SQ Q12 [facility] Last Admin: 09/27/20 09:05 Dose: 5,000 unit Documented by: Ceftriaxone Sodium 2 gm/ (Dextrose) 50 mls @ 100 mls/hr IV Q24H [facility]; Protocol Last Admin: 09/27/20 09:06 Dose: 100 mls/hr Documented by: Potassium Chloride 40 meq/ (Dextrose) 520 mls @ 130 mls/hr IV UD PRN PRN Reason: K+ = or < 3.5 Acetaminophen (Ofirmev) 650 mg in 65 mls @ 130 mls/hr IV Q6HP PRN; Protocol PRN Reason: Per Pain Protocol/Fever > 101 Magnesium Sulfate (Magnesium Sulfate) 2 gm in 50 mls @ 50 mls/hr IV UD PRN PRN Reason: MG = or < 1.7 Azithromycin 500 mg/ Dextrose 250 mls @ 250 mls/hr IV DAILY [facility]; Protocol Stop: 09/29/20 09:59 Last Admin: 09/27/20 13:22 Dose: 250 mls/hr Documented by: Iron Carb/Multivit/[place]/Folic Acid (Multivitamin W/Minerals) 1 tab PO DAILY [facility] Last Admin: 09/27/20 09:02 Dose: 1 tab Documented by: Lisinopril (Zestril) 20 mg PO DAILY [facility] Last Admin: 09/27/20 09:02 Dose: 20 mg Documented by: Melatonin (Melatonin 3mg Tablet) 3 mg PO [facility] PRN PRN Reason: Insomnia Ondansetron HCl (Zofran Odt) 4 mg SL Q4-6HP PRN; Protocol PRN Reason: Nausea And Vomiting Ondansetron HCl (Zofran) 4 mg IV Q4-6HP PRN; Protocol PRN Reason: Nausea And Vomiting Polyethylene Glycol (Miralax) 17 gm PO DAILYP PRN PRN Reason: Constipation Potassium Chloride (Klor-Con) 40 meq PO DAILYP PRN PRN Reason: K+ < 3.5 Senna/Docusate Sodium (Senna Plus Tablet) 1 tab PO HS [facility] Last Admin: 09/26/20 20:33 Dose: 1 tab Documented by: Sodium Chloride (Saline Flush) 10 ml IV Q8 [facility] Last Admin: 09/27/20 12:44 Dose: Not Given Documented by: Tramadol HCl (Ultram) 50 mg PO Q4-6HP PRN; Protocol PRN Reason: Per Pain Protocol Last Admin: 09/27/20 05:27 Dose: 50 mg Documented by: A/P Narrative A/P Narrative: * Fall with back contusion. PT OT/gait and safety eval/maintain fall risk * Chest infiltrates on imaging consistent with community-acquired pneumonia. On empiric antibiotic coverage for community pathogens. * Mild hypoxia-requiring 1 L oxygen. Secondary to pneumonia. * Lower back pain secondary to fall. Clinically improving. * Uncomplicated UTI continue antibiotic coverage. Await culture sensitivities * Generalized weakness and inability to take care of self. PT OT/patient wishes discharge home with guardians help * History of hypertension continue Toprol * Prophylaxis Heparin Plan * Continue antibiotic coverage * Pain management * PT OT * Pre-existing medical condition management home meds * Possible discharge in 24 hours pending clinical improvement Time Spent With Patient Time: Total time spent is greater than 50% in coordination of care (as documented) at patient's floor/unit and/or counseling patient: QUALITY Stroke Symptom Onset Unknown: No VTE Deep Vein Thrombosis/Pulmonary Embolism Present on Admission: No
[2020-09-27] MEDS: SENNOSIDES/DOCUSATE SODIUM 1 TAB TABLET PO SCH (19:47)
[2020-09-28] MEDS: 0.9 % SODIUM CHLORIDE 10 ML SYRINGE IV SCH ×3 (04:28→21:19)
[2020-09-28] MEDS: traMADol 50 MG TABLET PO PRN ×2 (04:28→21:18)
[2020-09-28 06:38] LABS: Basophils # (Auto) 0.02 K/mcL (0.00-0.20); Basophils % (Auto) 0.2 % (0.0-2.0); Eosinophils # (Auto) 0.02 K/mcL (0.00-0.70); Eosinophils % (Auto) 0.2 % (0.0-7.0); Hematocrit 40.4 % (36.0-48.0); Hemoglobin 12.7 g/dL (12.0-15.0); Lymphocytes # (Auto) 0.71 K/mcL (1.50-4.80); Lymphocytes % (Auto) 8.4 % (15.0-49.0); Mean Cell Volume 100.7 fL (80.0-100.0); Mean Corpuscular HGB Conc 31.4 g/dL (31.0-36.0); Mean Platelet Volume 10.5 fL (7.4-10.4); Monocytes # (Auto) 0.78 K/mcL (0.10-0.90); Monocytes % (Auto) 9.3 % (1.0-12.0); Neutrophils % (Auto) 81.9 % (38.0-78.0); Platelet Count 150 K/mcL (140-440); RBC 4.01 M/mcL (4.00-5.20); Red Cell Distribution Width 12.2 % (11.5-14.5); WBC 8.4 K/mcL (4.5-11.0)
[2020-09-28 07:11] LABS: ALT/SGPT 18 U/L (<40); AST/SGOT 21 U/L (<32); Albumin 3.6 gm/dL (3.2-5.2); Albumin/Globulin Ratio 1.2 (1.0-2.3); Alkaline Phosphatase 48 U/L (39-117); Bilirubin,Direct < 0.2 mg/dL (<0.3); Bilirubin,Total 0.5 mg/dL (0.1-1.0); Blood Urea Nitrogen 16 mg/dL (8-23); Carbon Dioxide 23 mmol/L (22-30); Chloride 105 mmol/L (96-108); Globulin 2.9 gm/dL (2.2-3.7); Glomerular Filtration Rate 83; Glucose 114 mg/dL (70-105); Lactate Dehydrogenase 304 U/L (135-225); Phosphorous 2.5 mg/dL (2.5-4.5); Triglycerides 75 mg/dL (<150); Uric Acid 3.4 mg/dL (2.5-8.0)
[2020-09-28] MEDS: CALCIUM W/VIT D3 500 MG TABLET PO SCH (08:18)
[2020-09-28] MEDS: DOCUSATE SODIUM 100 MG CAPSULE PO SCH ×2 (08:18→21:20)
[2020-09-28] MEDS: HEPARIN 5,000 UNIT/ML VIAL SQ SCH ×2 (08:18→21:19)
[2020-09-28] MEDS: FERROUS SULFATE 325 MG TABLET PO SCH (08:18)
[2020-09-28] MEDS: MULTIVIT,THER IRON,CA,FA & MIN 1 TABLET PO SCH (08:19)
[2020-09-28] MEDS: LISINOPRIL 20 MG TABLET PO SCH (08:19)
[2020-09-28] MEDS: cefTRIAXone 2 GM in DEXTROSE 5% IN WATER 50 ML IV SCH (08:21)
--- NOTE | 2020-09-28 09:08 | XRay Report ---
INDICATION: SOB TECHNIQUE: AP portable semierect chest x-ray COMPARISON: Chest CT scan dated 09/26/2020 FINDINGS: Lungs:Prominent interstitial markings bilaterally. No focal parenchymal consolidation or mass Heart, vascular:No significant cardiomegaly. Pulmonary vascularity is normal. No pulmonary edema or pulmonary congestion Mediastinum, shazia:No mediastinal widening. No hilar mass. There is a large hiatal hernia Pleura:No pleural fluid. No pleural-based mass or calcification Skeletal:Negative. IMPRESSION: 1. Large hiatal hernia 2. No acute or focal abnormality Interpreted and Authenticated by: Servando Toro 09/28/20
[2020-09-28] MEDS: AZITHROMYCIN 500 MG in DEXTROSE 5% IN WATER 250 ML IV SCH (10:03)
--- NOTE | 2020-09-28 14:12 | Internal Med Progress Note ---
SUBJECTIVE Subjective Patient information: Note initiated : 09/28/20 at 2:12 pm Service Date, if different from initiated Date: [] Patient: Dorota Reid a 75 y/o F admitted on 09/26/20 for abdominal pain. Chief Complaint: [] Interval history: Ms. Reid is a 75 year old F with a history of hypertension/iron deficient anemia who presents to the ER after she fell backwards on her back while trying to step on the stairs. She hit her head and back however did not lose consciousness. There was no evident seizure episode or lightheadedness dizziness. She however cannot recollect how she fell other than getting off balance. Initial work-up in the ER was unremarkable with a headache and CT spine for any fractures however patient continues to complain of pain around the back and abdomen. Also UA consistent with pyuria. Patient was started on antibiotics. Based on negative imaging patient was advised discharge home however she was found to be considerably weak unable to get out of bed without full assistance. Due to high risk subsequent fall and risk of injuries hospital service was consulted until a safe discharge plan can be instituted. Patient has a legal guardian and her brother David was unable during my visit. At the time of my visit patient is alert but in moderate distress. She is able to answer most the questions and endorses history as above. She denies fever, diarrhea, dysuria, joint pain, rash, headache endorses to occasional chills and abdominal discomfort. She is independent and receives help from her brother. Does not drive. 09/27-patient is morning was found to be hypoxic with sats around 90%. Antibio tic escalated to cover coverage acquired pathogens. Improving weakness. Ongoing therapies. White count 9000. Urine cultures pending. Continue therapies. Anticipate discharge in 24 hours pending clinical improvement to home with family help. 09/28-patient seen in room. Very lethargic fatigued. On 2 L oxygen. T-max 100.8 last evening. Concerning for worsening pneumonia. Currently on azith romycin/Rocephin. Transition to inpatient status due to worsening hypoxemia. E. coli on urine culture, sensitivities pending. Case discussed with patient's daughter Hugh/brother David. Very of the opinion that patient is much worse than her baseline and clearly will not be able to take care of herself at home. Discussed with case management for possibility of transfer to SNF for continued posthospitalization rehab and a safe transition back home once fully recovered. Continue antibiotic coverage/pulmonary toilet Constitutional Vitals: Vital Signs Temp Pulse Resp BP Pulse Ox 98.4 F 83 16 119/68 96 09/28/20 11:49 09/28/20 11:49 09/28/20 11:49 09/28/20 11:49 09/28/20 11:49 Period Temp Pulse Resp BP Sys/Sears Pulse Ox Last 24 Hr 98.4 F-100.8 F 80-97 13-20 99-134/51-74 87-96 Intake and Output 09/28/20 09/28/20 09/28/20 05:59 13:59 21:59 Intake Total 50 540 Output Total 25 575 Balance 25 -35 Lethargic and fatigued Minimally short of breath On 2 L oxygen No lymphedema Intake & Output: Intake & Output 09/28/20 09/28/20 09/28/20 05:59 13:59 21:59 Intake Total 50 540 Output Total 25 575 Balance 25 -35 Intake: IV 300 Zithromax 500 mg In Dextrose 5% 250 in Water 250 ml @ 250 mls/hr IV DAILY ONI Rx#:[id number] Rocephin 2 gm In Dextrose 5% in 50 Water 50 ml @ 100 mls/hr IV Q24H [facility] Rx#:[id number] Oral 50 240 Output: Void Amount 25 575 Other: Meal Lunch Percent of Meal Consumed 100% Feeding Ability Independent Urine Appearance Clear Clear Urine Color Bright Yellow Dark Yellow Urine Odor Normal OBJ DATA Labs CBC & Chem 7: 09/28/20 05:34 09/28/20 05:34 Labs: Abnormal Lab Results 09/28/20 09/28/20 09/27/20 05:34 05:34 05:34 MCV 100.7 H MPV 10.5 H Neut % (Auto) 81.9 H Lymph % (Auto) 8.4 L Lymph # (Auto) 0.71 L POC BUN Glucose 114 H 108 H POC Glucose Lactate Dehydrogenase 304 H 265 H Urine Ketones Urine Nitrate Ur Leukocyte Esterase Urine RBC Urine WBC Urine Bacteria Urine Mucus 09/27/20 09/26/20 09/26/20 05:00 11:00 10:54 MCV MPV 10.8 H Neut % (Auto) Lymph % (Auto) Lymph # (Auto) 1.39 L POC BUN 30 H Glucose POC Glucose 136 H Lactate Dehydrogenase Urine Ketones 5 A Urine Nitrate Pos A Ur Leukocyte Esterase 75 A Urine RBC 5 H Urine WBC 73 H Urine Bacteria Mod A Urine Mucus Many A 09/26/20 10:54 MCV MPV 10.8 H Neut % (Auto) Lymph % (Auto) Lymph # (Auto) POC BUN Glucose POC Glucose Lactate Dehydrogenase Urine Ketones Urine Nitrate Ur Leukocyte Esterase Urine RBC Urine WBC Urine Bacteria Urine Mucus Meds: Medications Acetaminophen (Tylenol) 650 mg PO Q4-6HP PRN; Protocol PRN Reason: Per Pain Protocol/Fever > 101 Last Admin: 09/27/20 17:30 Dose: 650 mg Documented by: Bisacodyl (Dulcolax) 10 mg [place] Q2-3DAYS PRN PRN Reason: Constipation Calcium/Vitamin D (Calcium W/Vit D3) 500 mg PO DAILY [facility] Last Admin: 09/28/20 08:18 Dose: 500 mg Documented by: Docusate Sodium (Colace) 100 mg PO BID [facility] Last Admin: 09/28/20 08:18 Dose: 100 mg Documented by: Ferrous Sulfate (Ferrous Sulfate) [address] [facility] Last Admin: 09/28/20 08:18 Dose: 325 mg Documented by: Guaifenesin/Codeine Phosphate (Robitussin Ac) 10 ml PO Q4HP PRN PRN Reason: Cough Heparin Sodium (Porcine) (Heparin) 5,000 unit SQ Q12 [facility] Last Admin: 09/28/20 08:18 Dose: 5,000 unit Documented by: Ceftriaxone Sodium 2 gm/ (Dextrose) 50 mls @ 100 mls/hr IV Q24H [facility]; Protocol Last Infusion: 09/28/20 08:55 Dose: Infused Documented by: Potassium Chloride 40 meq/ (Dextrose) 520 mls @ 130 mls/hr IV UD PRN PRN Reason: K+ = or < 3.5 Acetaminophen (Ofirmev) 650 mg in 65 mls @ 130 mls/hr IV Q6HP PRN; Protocol PRN Reason: Per Pain Protocol/Fever > 101 Magnesium Sulfate (Magnesium Sulfate) 2 gm in 50 mls @ 50 mls/hr IV UD PRN PRN Reason: MG = or < 1.7 Azithromycin 500 mg/ Dextrose 250 mls @ 250 mls/hr IV DAILY [facility]; Protocol Stop: 02/13/21 09:59 Last Infusion: 09/28/20 11:50 Dose: Infused Documented by: Iron Carb/Multivit/[employer]less [employer]/Folic Acid (Multivitamin W/Minerals) 1 tab PO DAILY [facility] Last Admin: 09/28/20 08:19 Dose: 1 tab Documented by: Lisinopril (Zestril) 20 mg PO DAILY [facility] Last Admin: 09/28/20 08:19 Dose: 20 mg Documented by: Melatonin (Melatonin 3mg Tablet) 3 mg PO HSP PRN PRN Reason: Insomnia Ondansetron HCl (Zofran Odt) 4 mg SL Q4-6HP PRN; Protocol PRN Reason: Nausea And Vomiting Ondansetron HCl (Zofran) 4 mg IV Q4-6HP PRN; Protocol PRN Reason: Nausea And Vomiting Polyethylene Glycol (Miralax) 17 gm PO DAILYP PRN PRN Reason: Constipation Potassium Chloride (Klor-Con) 40 meq PO DAILYP PRN PRN Reason: K+ < 3.5 Senna/Docusate Sodium (Senna Plus Tablet) 1 tab PO HS [facility] Last Admin: 09/27/20 19:47 Dose: 1 tab Documented by: Sodium Chloride (Saline Flush) 10 ml IV Q8 [facility] Last Admin: 09/28/20 13:51 Dose: 10 ml Documented by: Tramadol HCl (Ultram) 50 mg PO Q4-6HP PRN; Protocol PRN Reason: Per Pain Protocol Last Admin: 09/28/20 04:28 Dose: 50 mg Documented by: A/P Narrative A/P Narrative: * Acute hypoxic alma failure secondary pneumonia. Continue supplemental oxygen/pulmonary toilet/aspiration cautions/elevate HOB * Committee acquired pneumonia on antibiotic coverage * complicated E. coli UTI continue antibiotic and de-escalate based on sensitivities. * Profound weakness leading to fall with back contusion. Continue PT OT/gait as tolerated. Case management coordinate SNF transfer due to severe deconditio gayathri * Lower back pain secondary to fall. Clinically improving. * History of hypertension continue Toprol * Prophylaxis Heparin Plan * Transition to inpatient status * Continue antibiotic coverage * Wean oxygen as tolerated * Pulmonary toilet * PT OT * Pre-existing medical condition management home meds * Transfer to SNF. Case management to coordinate Time Spent With Patient Time: Total time spent is greater than 50% in coordination of care (as documented) at patient's floor/unit and/or counseling patient: QUALITY Stroke Symptom Onset Unknown: No VTE Deep Vein Thrombosis/Pulmonary Embolism Present on Admission: No
[2020-09-28] MEDS ORDERED: FUROSEMIDE 20 MG/2 ML VIAL IV ONE (14:22)
[2020-09-28] MEDS: SENNOSIDES/DOCUSATE SODIUM 1 TAB TABLET PO SCH (21:19)
[2020-09-29] MEDS: 0.9 % SODIUM CHLORIDE 10 ML SYRINGE IV SCH ×3 (05:44→20:52)
[2020-09-29 06:51] LABS: Basophils # (Auto) 0.04 K/mcL (0.00-0.20); Basophils % (Auto) 0.6 % (0.0-2.0); Eosinophils # (Auto) 0.06 K/mcL (0.00-0.70); Eosinophils % (Auto) 0.9 % (0.0-7.0); Hematocrit 39.4 % (36.0-48.0); Hemoglobin 12.6 g/dL (12.0-15.0); Lymphocytes # (Auto) 1.16 K/mcL (1.50-4.80); Lymphocytes % (Auto) 17.4 % (15.0-49.0); Mean Platelet Volume 11.2 fL (7.4-10.4); Monocytes # (Auto) 0.78 K/mcL (0.10-0.90); Monocytes % (Auto) 11.7 % (1.0-12.0); Neutrophils % (Auto) 69.4 % (38.0-78.0); Platelet Count 149 K/mcL (140-440); RBC 4.06 M/mcL (4.00-5.20); WBC 6.7 K/mcL (4.5-11.0)
[2020-09-29 07:19] LABS: ALT/SGPT 17 U/L (<40); AST/SGOT 17 U/L (<32); Albumin 3.5 gm/dL (3.2-5.2); Albumin/Globulin Ratio 1.2 (1.0-2.3); Alkaline Phosphatase 47 U/L (39-117); Bilirubin,Direct < 0.2 mg/dL (<0.3); Bilirubin,Total 0.4 mg/dL (0.1-1.0); Blood Urea Nitrogen 17 mg/dL (8-23); Calcium 8.6 mg/dL (8.6-10.4); Carbon Dioxide 28 mmol/L (22-30); Chloride 101 mmol/L (96-108); Glomerular Filtration Rate 71; Glucose 103 mg/dL (70-105); Lactate Dehydrogenase 227 U/L (135-225); Phosphorous 2.9 mg/dL (2.5-4.5); Triglycerides 76 mg/dL (<150); Uric Acid 3.7 mg/dL (2.5-8.0)
[2020-09-29] MEDS: ACETAMINOPHEN 325 MG TABLET PO PRN (08:28)
[2020-09-29] MEDS: DOCUSATE SODIUM 100 MG CAPSULE PO SCH ×2 (08:30→20:41)
[2020-09-29] MEDS: HEPARIN 5,000 UNIT/ML VIAL SQ SCH ×2 (08:30→20:41)
[2020-09-29] MEDS: MULTIVIT,THER IRON,CA,FA & MIN 1 TABLET PO SCH (08:30)
[2020-09-29] MEDS: CALCIUM W/VIT D3 500 MG TABLET PO SCH (08:30)
[2020-09-29] MEDS: LISINOPRIL 20 MG TABLET PO SCH (08:30)
[2020-09-29] MEDS: FERROUS SULFATE 325 MG TABLET PO SCH (08:30)
[2020-09-29] MEDS: cefTRIAXone 2 GM in DEXTROSE 5% IN WATER 50 ML IV SCH (08:33)
[2020-09-29] MEDS: AZITHROMYCIN 500 MG in DEXTROSE 5% IN WATER 250 ML IV SCH (08:33)
--- NOTE | 2020-09-29 10:37 | Internal Med Progress Note ---
SUBJECTIVE Subjective Patient information: Note initiated : 09/29/20 at 10:34 am Service Date, if different from initiated Date: [] Patient: Dorota Reid a 75 y/o F admitted on 09/28/20 for abdominal pain. Chief Complaint: [] Interval history: Ms. Reid is a 75 year old F with a history of hypertension/iron deficient anemia who presents to the ER after she fell backwards on her back while trying to step on the stairs. She hit her head and back however did not lose consciousness. There was no evident seizure episode or lightheadedness dizziness. She however cannot recollect how she fell other than getting off balance. Initial work-up in the ER was unremarkable with a headache and CT spine for any fractures however patient continues to complain of pain around the back and abdomen. Also UA consistent with pyuria. Patient was started on antibiotics. Based on negative imaging patient was advised discharge home however she was found to be considerably weak unable to get out of bed without full assistance. Due to high risk subsequent fall and risk of injuries hospital service was consulted until a safe discharge plan can be insti tuted. Patient has a legal guardian and her brother David was unable during my visit. At the time of my visit patient is alert but in moderate distress. She is able to answer most the questions and endorses history as above. She denies fever, diarrhea, dysuria, joint pain, rash, headache endorses to occasional chills and abdominal discomfort. She is independent and receives help from her brother. Does not drive. 09/27-patient is morning was found to be hypoxic with sats around 90%. Antibi otic escalated to cover coverage acquired pathogens. Improving weakness. Ongoing therapies. White count 9000. Urine cultures pending. Continue therapies. Anticipate discharge in 24 hours pending clinical improvement to home with family help. 09/28-patient seen in room. Very lethargic fatigued. On 2 L oxygen. T-max 100.8 last evening. Concerning for worsening pneumonia. Currently on azit hromycin/Rocephin. Transition to inpatient status due to worsening hypoxemia. E. coli on urine culture, sensitivities pending. Case discussed with patient's daughter Hugh/brother David. Very of the opinion that patient is much worse than her baseline and clearly will not be able to take care of herself at home. Discussed with case management for possibility of transfer to SNF for continued posthospitalization rehab and a safe transition back home once fully recovered. Continue antibiotic coverage/pulmonary toilet 09/29-patient doing well. Is sitting on chair. Eating breakfast. No overnight fever chills. On 1 to 2 L oxygen. White count stable. Echocardiogram pending. Feels better than previous day. Anticipate discharge on Thursday or Thursday to SNF. Continue therapies/nutrition support Constitutional Vitals: Vital Signs Temp Pulse Resp BP Pulse Ox 98.1 F 76 20 101/57 95 09/29/20 07:08 09/29/20 07:08 09/29/20 07:08 09/29/20 07:08 09/29/20 07:08 Period Temp Pulse Resp BP Sys/Sears Pulse Ox Last 24 Hr 98.1 F-100.4 F 76-98 16-20 97-123/57-74 92-96 Intake and Output 09/28/20 09/29/20 09/29/20 21:59 05:59 13:59 Intake Total 100 Output Total 400 300 Balance -400 -200 Weight 69.672 kg Alert oriented Nonlabored breathing No lymphedema No anxiety Intake & Output: Intake & Output 09/28/20 09/29/20 09/29/20 21:59 05:59 13:59 Intake Total 100 Output Total 400 300 Balance -400 -200 Weight 69.672 kg Intake: Oral 100 Output: Urine Catheter Amount 300 Void Amount 400 Other: Urine Appearance Clear Urine Color Bright Yellow Urine Odor Normal # Voids 2 OBJ DATA Labs CBC & Chem 7: 09/29/20 05:19 09/29/20 05:19 Labs: Abnormal Lab Results 09/29/20 09/29/20 09/28/20 05:19 05:19 05:34 MCV MPV 11.2 H Neut % (Auto) Lymph % (Auto) Lymph # (Auto) 1.16 L Anion Gap 7.0 L POC BUN Glucose 114 H POC Glucose Lactate Dehydrogenase 227 H 304 H Urine Ketones Urine Nitrate Ur Leukocyte Esterase Urine RBC Urine WBC Urine Bacteria Urine Mucus 09/28/20 09/27/20 09/27/20 05:34 05:34 05:00 MCV 100.7 H MPV 10.5 H 10.8 H Neut % (Auto) 81.9 H Lymph % (Auto) 8.4 L Lymph # (Auto) 0.71 L 1.39 L Anion Gap POC BUN Glucose 108 H POC Glucose Lactate Dehydrogenase 265 H Urine Ketones Urine Nitrate Ur Leukocyte Esterase Urine RBC Urine WBC Urine Bacteria Urine Mucus 09/26/20 09/26/20 09/26/20 11:00 10:54 10:54 MCV MPV 10.8 H Neut % (Auto) Lymph % (Auto) Lymph # (Auto) Anion Gap POC BUN 30 H Glucose POC Glucose 136 H Lactate Dehydrogenase Urine Ketones 5 A Urine Nitrate Pos A Ur Leukocyte Esterase 75 A Urine RBC 5 H Urine WBC 73 H Urine Bacteria Mod A Urine Mucus Many A Meds: Medications Acetaminophen (Tylenol) 650 mg PO Q4-6HP PRN; Protocol PRN Reason: Per Pain Protocol/Fever > 101 Last Admin: 09/29/20 08:28 Dose: 650 mg Documented by: Bisacodyl (Dulcolax) [address] Q2-3DAYS PRN PRN Reason: Constipation Calcium/Vitamin D (Calcium W/Vit D3) 500 mg PO DAILY [facility] Last Admin: 09/29/20 08:30 Dose: 500 mg Documented by: Docusate Sodium (Colace) 100 mg PO BID [facility] Last Admin: 09/29/20 08:30 Dose: 100 mg Documented by: Ferrous Sulfate (Ferrous Sulfate) 325 mg PO [facility] Last Admin: 09/29/20 08:30 Dose: 325 mg Documented by: Guaifenesin/Codeine Phosphate (Robitussin Ac) 10 ml PO Q4HP PRN PRN Reason: Cough Last Admin: 09/28/20 21:18 Dose: 10 ml Documented by: Heparin Sodium (Porcine) (Heparin) 5,000 unit SQ Q12 [facility] Last Admin: 09/29/20 08:30 Dose: 5,000 unit Documented by: Ceftriaxone Sodium 2 gm/ (Dextrose) 50 mls @ 100 mls/hr IV Q24H [facility]; Protocol Last Admin: 09/29/20 08:33 Dose: 100 mls/hr Documented by: Potassium Chloride 40 meq/ (Dextrose) 520 mls @ 130 mls/hr IV UD PRN PRN Reason: K+ = or < 3.5 Acetaminophen (Ofirmev) 650 mg in 65 mls @ 130 mls/hr IV Q6HP PRN; Protocol PRN Reason: Per Pain Protocol/Fever > 101 Magnesium Sulfate (Magnesium Sulfate) 2 gm in 50 mls @ 50 mls/hr IV UD PRN PRN Reason: MG = or < 1.7 Iron Carb/Multivit/[place]/Folic Acid (Multivitamin W/Minerals) 1 tab PO DAILY [facility] Last Admin: 09/29/20 08:30 Dose: 1 tab Documented by: Lisinopril (Zestril) 20 mg PO DAILY [facility] Last Admin: 09/29/20 08:30 Dose: 20 mg Documented by: Melatonin (Melatonin 3mg Tablet) 3 mg PO HSP PRN PRN Reason: Insomnia Ondansetron HCl (Zofran Odt) 4 mg SL Q4-6HP PRN; Protocol PRN Reason: Nausea And Vomiting Ondansetron HCl (Zofran) 4 mg IV Q4-6HP PRN; Protocol PRN Reason: Nausea And Vomiting Polyethylene Glycol (Miralax) 17 gm PO DAILYP PRN PRN Reason: Constipation Potassium Chloride (Klor-Con) 40 meq PO DAILYP PRN PRN Reason: K+ < 3.5 Senna/Docusate Sodium (Senna Plus Tablet) 1 tab PO HS [facility] Last Admin: 09/28/20 21:19 Dose: Not Given Documented by: Sodium Chloride (Saline Flush) 10 ml IV Q8 [facility] Last Admin: 09/29/20 05:44 Dose: 10 ml Documented by: Tramadol HCl (Ultram) 50 mg PO Q4-6HP PRN; Protocol PRN Reason: Per Pain Protocol Last Admin: 09/28/20 21:18 Dose: 50 mg Documented by: A/P Narrative A/P Narrative: * Acute hypoxic respiratory secondary to pneumonia. Clinically improving, weaning oxygen as tolerated * Community acquired pneumonia versus aspiration. Continue to elevate HOB/aspiration precautions/antibiotic coverage. Clinical improvement noted * Complicated E. coli UTI clinically improving on antibiotic coverage * Profound weakness leading to fall with back contusion. Ongoing daily PT OT. Anticipate SNF transfer in 48 hours due to severe deconditioning * Lower back pain secondary to fall. Clinically improving. * History of hypertension continue Toprol * Prophylaxis Heparin Plan * Continue antibiotics/aspiration precaution * Wean oxygen as tolerated * 20 daily therapies * Pre-existing medical condition management home meds * Transfer to SNF likely in 48 hours Time Spent With Patient Time: Total time spent is greater than 50% in coordination of care (as documented) at patient's floor/unit and/or counseling patient: QUALITY Stroke Symptom Onset Unknown: No VTE Deep Vein Thrombosis/Pulmonary Embolism Present on Admission: No
[2020-09-29] MEDS: traMADol 50 MG TABLET PO PRN ×2 (14:26→20:51)
[2020-09-29] MEDS: SENNOSIDES/DOCUSATE SODIUM 1 TAB TABLET PO SCH (20:41)
[2020-09-30] MEDS: traMADol 50 MG TABLET PO PRN ×3 (00:59→21:16)
[2020-09-30] MEDS: 0.9 % SODIUM CHLORIDE 10 ML SYRINGE IV SCH ×3 (05:14→21:17)
[2020-09-30] MEDS: ACETAMINOPHEN 325 MG TABLET PO PRN ×2 (05:17→23:16)
[2020-09-30 06:42] LABS: Basophils # (Auto) 0.02 K/mcL (0.00-0.20); Basophils % (Auto) 0.2 % (0.0-2.0); Eosinophils # (Auto) 0.01 K/mcL (0.00-0.70); Eosinophils % (Auto) 0.1 % (0.0-7.0); Hematocrit 39.6 % (36.0-48.0); Hemoglobin 12.9 g/dL (12.0-15.0); Lymphocytes # (Auto) 1.09 K/mcL (1.50-4.80); Lymphocytes % (Auto) 13.6 % (15.0-49.0); Mean Cell Volume 96.8 fL (80.0-100.0); Mean Corpuscular HGB Conc 32.6 g/dL (31.0-36.0); Mean Platelet Volume 10.8 fL (7.4-10.4); Monocytes # (Auto) 0.83 K/mcL (0.10-0.90); Monocytes % (Auto) 10.3 % (1.0-12.0); Neutrophils % (Auto) 75.8 % (38.0-78.0); Platelet Count 162 K/mcL (140-440); RBC 4.09 M/mcL (4.00-5.20)
[2020-09-30 07:00] LABS: ALT/SGPT 18 U/L (<40); AST/SGOT 22 U/L (<32); Albumin 3.6 gm/dL (3.2-5.2); Albumin/Globulin Ratio 1.1 (1.0-2.3); Alkaline Phosphatase 50 U/L (39-117); Bilirubin,Direct < 0.2 mg/dL (<0.3); Bilirubin,Total 0.4 mg/dL (0.1-1.0); Blood Urea Nitrogen 20 mg/dL (8-23); Calcium 8.9 mg/dL (8.6-10.4); Carbon Dioxide 28 mmol/L (22-30); Chloride 99 mmol/L (96-108); Globulin 3.3 gm/dL (2.2-3.7); Glomerular Filtration Rate 83; Glucose 127 mg/dL (70-105); Lactate Dehydrogenase 227 U/L (135-225); Phosphorous 2.8 mg/dL (2.5-4.5); Triglycerides 71 mg/dL (<150); Uric Acid 3.7 mg/dL (2.5-8.0)
[2020-09-30] MEDS ORDERED: FUROSEMIDE 20 MG/2 ML VIAL IV ONE (07:30)
[2020-09-30] MEDS ORDERED: CAPSAICIN 0.025% CREAM.TOP 60GM TOPICAL PRN (08:18)
--- NOTE | 2020-09-30 08:51 | Internal Med Progress Note ---
SUBJECTIVE Subjective Patient information: Note initiated : 09/30/20 at 8:46 am Service Date, if different from initiated Date: [] Patient: Dorota Reid a 75 y/o F admitted on 09/28/20 for abdominal pain. Chief Complaint: [] Interval history: Ms. Reid is a 75 year old F with a history of hypertension/iron deficient anemia who presents to the ER after she fell backwards on her back while trying to step on the stairs. She hit her head and back however did not lose consciousness. There was no evident seizure episode or lightheadedness dizziness. She however cannot recollect how she fell other than getting off balance. Initial work-up in the ER was unremarkable with a headache and CT spine for any fractures however patient continues to complain of pain around the back and abdomen. Also UA consistent with pyuria. Patient was started on antibiotics. Based on negative imaging patient was advised discharge home however she was found to be considerably weak unable to get out of bed without full assistance. Due to high risk subsequent fall and risk of injuries hospital service was consulted until a safe discharge plan can be instituted. Patient has a legal guardian and her brother David was unable during my visit. At the time of my visit patient is alert but in moderate distress. She is able to answer most the questions and endorses history as above. She denies fever, diarrhea, dysuria, joint pain, rash, headache endorses to occasional chills and abdominal discomfort. She is independent and receives help from her brother. Does not drive. 09/27-patient is morning was found to be hypoxic with sats around 90%. Antibio tic escalated to cover coverage acquired pathogens. Improving weakness. Ongoing therapies. White count 9000. Urine cultures pending. Continue therapies. Anticipate discharge in 24 hours pending clinical improvement to home with family help. 09/28-patient seen in room. Very lethargic fatigued. On 2 L oxygen. T-max 100.8 last evening. Concerning for worsening pneumonia. Currently on azith romycin/Rocephin. Transition to inpatient status due to worsening hypoxemia. E. coli on urine culture, sensitivities pending. Case discussed with patient's daughter Hugh/brother David. Very of the opinion that patient is much worse than her baseline and clearly will not be able to take care of herself at home. Discussed with case management for possibility of transfer to SNF for continued posthospitalization rehab and a safe transition back home once fully recovered. Continue antibiotic coverage/pulmonary toilet 09/29-patient doing well. Is sitting on chair. Eating breakfast. No overnight fever chills. On 1 to 2 L oxygen. White count stable. Echocardiogram pending. Feels better than previous day. Anticipate discharge on Thursday or Thursday to SNF. Continue therapies/nutrition support 09/30-patient in good spirits this morning. Feels a lot better. Feels her right arm swelling has improved(chronic due to history of mastectomy) overnight T-max 100.8. On 2.5 L oxygen. Anticipate discharge in 24 to 48 hours to SNF pending clinical improvement. No family at bedside. Constitutional Vitals: Vital Signs Temp Pulse Resp BP Pulse Ox 98.6 F 88 18 90/56 94 09/30/20 06:54 09/30/20 06:54 09/30/20 06:54 09/30/20 06:54 09/30/20 07:15 Period Temp Pulse Resp BP Sys/Sears Pulse Ox Last 24 Hr 97.7 F-100.8 F 85-98 18- 89-120/52-75 90-96 Intake and Output 09/29/20 09/30/20 09/30/20 21:59 05:59 13:59 Intake Total 50 500 Output Total 250 Balance -200 500 Weight 69.944 kg alert and respond to commands, eating breakfast Nonlabored breathing On 2.5 years oxygen Lymphedema right upper extremity improving. Intake & Output: Intake & Output 09/29/20 09/30/20 09/30/20 21:59 05:59 13:59 Intake Total 50 500 Output Total 250 Balance -200 500 Weight 69.944 kg Intake: IV 50 Rocephin 2 gm In Dextrose 5% in 50 Water 50 ml @ 100 mls/hr IV Q24H [facility] Rx#:[id number] Oral 500 Output: Void Amount 250 Other: Urine Appearance Clear Urine Color Bright Yellow Stool Size Moderate Stool Color Brown Stool Consistency Soft Formed # Voids 1 OBJ DATA Labs CBC & Chem 7: 09/30/20 05:21 09/30/20 05:21 Labs: Abnormal Lab Results 09/30/20 09/30/20 09/29/20 05:21 05:21 05:19 MCV MPV 10.8 H Neut % (Auto) Lymph % (Auto) 13.6 L Lymph # (Auto) 1.09 L Anion Gap 7.0 L 7.0 L Glucose 127 H Lactate Dehydrogenase 227 H 227 H 09/29/20 09/28/20 09/28/20 05:19 05:34 05:34 MCV 100.7 H MPV 11.2 H 10.5 H Neut % (Auto) 81.9 H Lymph % (Auto) 8.4 L Lymph # (Auto) 1.16 L 0.71 L Anion Gap Glucose 114 H Lactate Dehydrogenase 304 H Meds: Medications Acetaminophen (Tylenol) 650 mg PO Q4-6HP PRN; Protocol PRN Reason: Per Pain Protocol/Fever > 101 Last Admin: 09/30/20 05:17 Dose: 650 mg Documented by: Bisacodyl (Dulcolax) 10 mg [place] Q2-3DAYS PRN PRN Reason: Constipation Calcium/Vitamin D (Calcium W/Vit D3) 500 mg PO DAILY [facility] Last Admin: 09/29/20 08:30 Dose: 500 mg Documented by: Capsaicin (Zostrix) 1 dose TOPICAL TIDP PRN PRN Reason: Muscle Pain Docusate Sodium (Colace) 100 mg PO BID [facility] Last Admin: 09/29/20 20:41 Dose: 100 mg Documented by: Ferrous Sulfate (Ferrous Sulfate) 325 mg PO [facility] Last Admin: 09/29/20 08:30 Dose: 325 mg Documented by: Guaifenesin/Codeine Phosphate (Robitussin Ac) 10 ml PO Q4HP PRN PRN Reason: Cough Last Admin: 09/28/20 21:18 Dose: 10 ml Documented by: Heparin Sodium (Porcine) (Heparin) 5,000 unit SQ Q12 [facility] Last Admin: 09/29/20 20:41 Dose: 5,000 unit Documented by: Ceftriaxone Sodium 2 gm/ (Dextrose) 50 mls @ 100 mls/hr IV Q24H [facility]; Protocol Last Infusion: 09/29/20 18:32 Dose: Infused Documented by: Potassium Chloride 40 meq/ (Dextrose) 520 mls @ 130 mls/hr IV UD PRN PRN Reason: K+ = or < 3.5 Acetaminophen (Ofirmev) 650 mg in 65 mls @ 130 mls/hr IV Q6HP PRN; Protocol PRN Reason: Per Pain Protocol/Fever > 101 Magnesium Sulfate (Magnesium Sulfate) 2 gm in 50 mls @ 50 mls/hr IV UD PRN PRN Reason: MG = or < 1.7 Iron Carb/Multivit/Searcy/Folic Acid (Multivitamin W/Minerals) 1 tab PO DAILY [facility] Last Admin: 09/29/20 08:30 Dose: 1 tab Documented by: Lisinopril (Zestril) 20 mg PO DAILY [facility] Last Admin: 09/29/20 08:30 Dose: 20 mg Documented by: Melatonin (Melatonin 3mg Tablet) 3 mg PO HSP PRN PRN Reason: Insomnia Ondansetron HCl (Zofran Odt) 4 mg SL Q4-6HP PRN; Protocol PRN Reason: Nausea And Vomiting Ondansetron HCl (Zofran) 4 mg IV Q4-6HP PRN; Protocol PRN Reason: Nausea And Vomiting Polyethylene Glycol (Miralax) 17 gm PO DAILYP PRN PRN Reason: Constipation Potassium Chloride (Klor-Con) 40 meq PO DAILYP PRN PRN Reason: K+ < 3.5 Last Admin: 09/29/20 16:10 Dose: 40 meq Documented by: Senna/Docusate Sodium (Senna Plus Tablet) 1 tab PO HS [facility] Last Admin: 09/29/20 20:41 Dose: 1 tab Documented by: Sodium Chloride (Saline Flush) 10 ml IV Q8 [facility] Last Admin: 09/30/20 05:14 Dose: 10 ml Documented by: Tramadol HCl (Ultram) 50 mg PO Q4-6HP PRN; Protocol PRN Reason: Per Pain Protocol Last Admin: 09/30/20 05:17 Dose: 50 mg Documented by: A/P Narrative A/P Narrative: * Acute hypoxic respiratory secondary to pneumonia. On 2.5 oxygen. * Community acquired pneumonia versus aspiration. Remains intermittently febrile. White count downtrending. COVID-19 negative. Responding to antibiotics. Continue elevation HOB/aspiration precautions * Complicated E. coli UTI clinically improving on antibiotic coverage. Await se nsitivities for de-escalation * Profound weakness leading to fall with back contusion. Ongoing daily PT OT. Anticipate SNF transfer in 24 hours due to severe deconditioning * Right upper extremity lymphedema continue limb elevation/gentle diuresis * Lower back pain secondary to fall. Clinically improving. * History of hypertension continue Toprol * Prophylaxis Heparin Plan * Continue antibiotics/aspiration precaution * Wean oxygen as tolerated, discharged with oxygen in 24 hours to SNF if indicated * Gentle diuresis * Pre-existing medical condition management home meds * Transfer to SNF likely in 24 hours. Coordination per case management Time Spent With Patient Time: Total time spent is greater than 50% in coordination of care (as documented) at patient's floor/unit and/or counseling patient: QUALITY Stroke Symptom Onset Unknown: No VTE Deep Vein Thrombosis/Pulmonary Embolism Present on Admission: No
[2020-09-30] MEDS: MULTIVIT,THER IRON,CA,FA & MIN 1 TABLET PO SCH (09:35)
[2020-09-30] MEDS: FERROUS SULFATE 325 MG TABLET PO SCH (09:35)
[2020-09-30] MEDS: LISINOPRIL 20 MG TABLET PO SCH (09:35)
[2020-09-30] MEDS: CALCIUM W/VIT D3 500 MG TABLET PO SCH (09:35)
[2020-09-30] MEDS: DOCUSATE SODIUM 100 MG CAPSULE PO SCH ×2 (09:35→21:17)
[2020-09-30] MEDS: HEPARIN 5,000 UNIT/ML VIAL SQ SCH (09:35)
[2020-09-30] MEDS: cefTRIAXone 2 GM in DEXTROSE 5% IN WATER 50 ML IV SCH (09:39)
--- NOTE | 2020-09-30 13:52 | Internal Med Progress Note ---
SUBJECTIVE Subjective Patient information: Note initiated : 09/30/20 at 1:47 pm Service Date, if different from initiated Date: [] Patient: Dorota Reid a 75 y/o F admitted on 09/28/20 for abdominal pain. Chief Complaint: [] Interval history: Ms. Reid is a 75 year old F with a history of hypertension/iron deficient anemia who presents to the ER after she fell backwards on her back while trying to step on the stairs. She hit her head and back however did not lose consciousness. There was no evident seizure episode or lightheadedness dizziness. She however cannot recollect how she fell other than getting off balance. Initial work-up in the ER was unremarkable with a headache and CT spine for any fractures however patient continues to complain of pain around the back and abdomen. Also UA consistent with pyuria. Patient was started on antibiotics. Based on negative imaging patient was advised discharge home however she was found to be considerably weak unable to get out of bed without full assistance. Due to high risk subsequent fall and risk of injuries hospital service was consulted until a safe discharge plan can be instituted. Patient has a legal guardian and her brother David was unable during my visit. At the time of my visit patient is alert but in moderate distress. She is able to answer most the questions and endorses history as above. She denies fever, diarrhea, dysuria, joint pain, rash, headache endorses to occasional chills and abdominal discomfort. She is independent and receives help from her brother. Does not drive. 09/27-patient is morning was found to be hypoxic with sats around 90%. Antibio tic escalated to cover coverage acquired pathogens. Improving weakness. Ongoing therapies. White count 9000. Urine cultures pending. Continue therapies. Anticipate discharge in 24 hours pending clinical improvement to home with family help. 09/28-patient seen in room. Very lethargic fatigued. On 2 L oxygen. T-max 100.8 last evening. Concerning for worsening pneumonia. Currently on azith romycin/Rocephin. Transition to inpatient status due to worsening hypoxemia. E. coli on urine culture, sensitivities pending. Case discussed with patient's daughter Hugh/brother David. Very of the opinion that patient is much worse than her baseline and clearly will not be able to take care of herself at home. Discussed with case management for possibility of transfer to SNF for continued posthospitalization rehab and a safe transition back home once fully recovered. Continue antibiotic coverage/pulmonary toilet 09/29-patient doing well. Is sitting on chair. Eating breakfast. No overnight fever chills. On 1 to 2 L oxygen. White count stable. Echocardiogram pending. Feels better than previous day. Anticipate discharge on Thursday or Thursday to SNF. Continue therapies/nutrition support 09/30-patient in good spirits this morning. Feels a lot better. Feels her right arm swelling has improved(chronic due to history of mastectomy) overnight T-max 100.8. On 2.5 L oxygen. Anticipate discharge in 24 to 48 hours to SNF pending clinical improvement. No family at bedside. Constitutional Vitals: Vital Signs Temp Pulse Resp BP Pulse Ox 98.6 F 81 14 84/54 94 09/30/20 11:05 09/30/20 11:05 09/30/20 11:05 09/30/20 11:05 09/30/20 11:05 Period Temp Pulse Resp BP Sys/Sears Pulse Ox Last 24 Hr 97.7 F-100.8 F 81-98 84-120/54-75 90-96 Intake and Output 09/29/20 09/30/20 09/30/20 21:59 05:59 13:59 Intake Total 50 500 290 Output Total 250 300 Balance -200 500 -10 Weight 69.944 kg Intake & Output: Intake & Output 09/29/20 09/30/20 09/30/20 21:59 05:59 13:59 Intake Total 50 500 290 Output Total 250 300 Balance -200 500 -10 Weight 69.944 kg Intake: IV 50 50 Rocephin 2 gm In Dextrose 5% in 50 50 Water 50 ml @ 100 mls/hr IV Q24H [facility] Rx#:[id number] Oral 500 240 Output: Void Amount 250 300 Other: Meal Breakfast Percent of Meal Consumed 100% Feeding Ability Independent Urine Appearance Clear Clear Urine Color Bright Yellow Dark Yellow Urine Odor Normal Stool Size Moderate Moderate Stool Color Brown Brown Stool Consistency Soft Soft Formed Formed # Voids 1 Exam: General: Alert, Awake, No acute Distress Eyes/N/T: EOMI, Head/Neck: neck supple, CV: RRR, No murmurs, Pulm: b/l, no wheezing Abd: soft, nontender, +BS x4 Ext: no clubbing/cyanosis/edema Neuro: Alert, no focal deficits, moves all extremities, Skin: warm/dry OBJ DATA Labs CBC & Chem 7: 09/30/20 05:21 09/30/20 05:21 Labs: Abnormal Lab Results 09/30/20 09/30/20 09/29/20 05:21 05:21 05:19 MCV MPV 10.8 H Neut % (Auto) Lymph % (Auto) 13.6 L Lymph # (Auto) 1.09 L Anion Gap 7.0 L 7.0 L Glucose 127 H Lactate Dehydrogenase 227 H 227 H 09/29/20 09/28/20 09/28/20 05:19 05:34 05:34 MCV 100.7 H MPV 11.2 H 10.5 H Neut % (Auto) 81.9 H Lymph % (Auto) 8.4 L Lymph # (Auto) 1.16 L 0.71 L Anion Gap Glucose 114 H Lactate Dehydrogenase 304 H Meds: Medications Acetaminophen (Tylenol) 650 mg PO Q4-6HP PRN; Protocol PRN Reason: Per Pain Protocol/Fever > 101 Last Admin: 09/30/20 05:17 Dose: 650 mg Documented by: Bisacodyl (Dulcolax) 10 mg [place] Q2-3DAYS PRN PRN Reason: Constipation Calcium/Vitamin D (Calcium W/Vit D3) 500 mg PO DAILY [facility] Last Admin: 09/30/20 09:35 Dose: 500 mg Documented by: Capsaicin (Zostrix) 1 dose TOPICAL TIDP PRN PRN Reason: Muscle Pain Docusate Sodium (Colace) 100 mg PO BID [facility] Last Admin: 09/30/20 09:35 Dose: 100 mg Documented by: Ferrous Sulfate ([facility]ous Sulfate) [facility] Last Admin: 09/30/20 09:35 Dose: 325 mg Documented by: Guaifenesin/Codeine Phosphate (Robitussin Ac) 10 ml PO Q4HP PRN PRN Reason: Cough Last Admin: 09/28/20 21:18 Dose: 10 ml Documented by: Heparin Sodium (Porcine) (Heparin) 5,000 unit SQ Q12 [facility] Last Admin: 09/30/20 09:35 Dose: 5,000 unit Documented by: Ceftriaxone Sodium 2 gm/ (Dextrose) 50 mls @ 100 mls/hr IV Q24H [facility]; Protocol Last Infusion: 09/30/20 10:09 Dose: Infused Documented by: Potassium Chloride 40 meq/ (Dextrose) 520 mls @ 130 mls/hr IV UD PRN PRN Reason: K+ = or < 3.5 Acetaminophen (Ofirmev) 650 mg in 65 mls @ 130 mls/hr IV Q6HP PRN; Protocol PRN Reason: Per Pain Protocol/Fever > 101 Magnesium Sulfate (Magnesium Sulfate) 2 gm in 50 mls @ 50 mls/hr IV UD PRN PRN Reason: MG = or < 1.7 Iron Carb/Multivit/[place]/Folic Acid (Multivitamin W/Minerals) 1 tab PO DAILY [facility] Last Admin: 09/30/20 09:35 Dose: 1 tab Documented by: Lisinopril (Zestril) 20 mg PO DAILY [facility] Last Admin: 09/30/20 09:35 Dose: Not Given Documented by: Melatonin (Melatonin 3mg Tablet) 3 mg PO HSP PRN PRN Reason: Insomnia Ondansetron HCl (Zofran Odt) 4 mg SL Q4-6HP PRN; Protocol PRN Reason: Nausea And Vomiting Ondansetron HCl (Zofran) 4 mg IV Q4-6HP PRN; Protocol PRN Reason: Nausea And Vomiting Polyethylene Glycol (Miralax) 17 gm PO DAILYP PRN PRN Reason: Constipation Potassium Chloride (Klor-Con) 40 meq PO DAILYP PRN PRN Reason: K+ < 3.5 Last Admin: 09/29/20 16:10 Dose: 40 meq Documented by: Senna/Docusate Sodium (Senna Plus Tablet) 1 tab PO HS [facility] Last Admin: 09/29/20 20:41 Dose: 1 tab Documented by: Sodium Chloride (Saline Flush) 10 ml IV Q8 [facility] Last Admin: 09/30/20 05:14 Dose: 10 ml Documented by: Tramadol HCl (Ultram) 50 mg PO Q4-6HP PRN; Protocol PRN Reason: Per Pain Protocol Last Admin: 09/30/20 05:17 Dose: 50 mg Documented by: A/P Narrative A/P Narrative: A: *Acute hypoxic respiratory: 2/2 pneumonia -On 2.5 L oxygen *CAP vs Aspiration -Remains intermittently febrile. White count downtrending. COVID-19 negative. *Complicated (E. coli) UTI: *Profound weakness/deconditioning leading to fall with back contusion: *Right UE lymphedema: continue limb elevation/gentle diuresis *Lower back pain: 2/2 fall. Clinically improving. *HTN: on Toprol Plan: -Continue antibiotics/aspiration precaution -Responding to antibiotics. Continue elevation HOB/aspiration precautions -IS/Acapella -Wean oxygen as tolerated, discharged with oxygen in 24 hours to SNF if indicated -Gentle diuresis -Transfer to SNF likely in 24 hours. Coordination per case management -ppx: lovenox limited code status Time Spent With Patient Time: Total time spent is greater than 50% in coordination of care (as documented) at patient's floor/unit and/or counseling patient: QUALITY Stroke Symptom Onset Unknown: No VTE Deep Vein Thrombosis/Pulmonary Embolism Present on Admission: No
[2020-09-30] MEDS: SENNOSIDES/DOCUSATE SODIUM 1 TAB TABLET PO SCH (21:17)
[2020-10-01] MEDS: 0.9 % SODIUM CHLORIDE 10 ML SYRINGE IV SCH (06:19)
--- NOTE | 2020-10-01 07:26 | Internal Med Progress Note ---
SUBJECTIVE Subjective Patient information: Note initiated : 10/01/20 at 7:23 am Service Date, if different from initiated Date: [] Patient: Dorota Reid a 75 y/o F admitted on 09/28/20 for abdominal pain. Chief Complaint: [] Interval history: Ms. Reid is a 75 year old F with a history of hypertension/iron deficient anemia who presents to the ER after she fell backwards on her back while trying to step on the stairs. She hit her head and back however did not lose consciousness. There was no evident seizure episode or lightheadedness dizziness. She however cannot recollect how she fell other than getting off balance. Initial work-up in the ER was unremarkable with a headache and CT spine for any fractures however patient continues to complain of pain around the back and abdomen. Also UA consistent with pyuria. Patient was started on antibiotics. Based on negative imaging patient was advised discharge home however she was found to be considerably weak unable to get out of bed without full assistance. Due to high risk subsequent fall and risk of injuries hospital service was consulted until a safe discharge plan can be instituted. Patient has a legal guardian and her brother David was unable during my visit. At the time of my visit patient is alert but in moderate distress. She is able to answer most the questions and endorses history as above. She denies fever, diarrhea, dysuria, joint pain, rash, headache endorses to occasional chills and abdominal discomfort. She is independent and receives help from her brother. Does not drive. 09/27-patient is morning was found to be hypoxic with sats around 90%. Antibio tic escalated to cover coverage acquired pathogens. Improving weakness. Ongoing therapies. White count 9000. Urine cultures pending. Continue therapies. Anticipate discharge in 24 hours pending clinical improvement to home with family help. 09/28-patient seen in room. Very lethargic fatigued. On 2 L oxygen. T-max 100.8 last evening. Concerning for worsening pneumonia. Currently on azith romycin/Rocephin. Transition to inpatient status due to worsening hypoxemia. E. coli on urine culture, sensitivities pending. Case discussed with patient's daughter Hugh/brother David. Very of the opinion that patient is much worse than her baseline and clearly will not be able to take care of herself at home. Discussed with case management for possibility of transfer to SNF for continued posthospitalization rehab and a safe transition back home once fully recovered. Continue antibiotic coverage/pulmonary toilet 09/29-patient doing well. Is sitting on chair. Eating breakfast. No overnight fever chills. On 1 to 2 L oxygen. White count stable. Echocardiogram pending. Feels better than previous day. Anticipate discharge on Thursday or Thursday to SNF. Continue therapies/nutrition support 09/30-patient in good spirits this morning. Feels a lot better. Feels her right arm swelling has improved(chronic due to history of mastectomy) overnight T-max 100.8. On 2.5 L oxygen. Anticipate discharge in 24 to 48 hours to SNF pending clinical improvement. No family at bedside. 10/01 No overnight event or new complaints. Patient on room air to 1 L. Review of Systems: denies headache/fever/chills/nausea/vomiting/chest or abdominal pain/diarrhea. Otherwise see above. Constitutional Vitals: Vital Signs Temp Pulse Resp BP Pulse Ox 98.7 F 80 18 104/65 93 10/01/20 03:50 10/01/20 03:50 10/01/20 03:50 10/01/20 03:50 10/01/20 03:50 Period Temp Pulse Resp BP Sys/Sears Pulse Ox Last 24 Hr 98.6 F-100.8 F 80-99 14-18 84-143/54-87 90-94 Intake and Output 09/30/20 10/01/20 10/01/20 21:59 05:59 13:59 Intake Total 200 Output Total 525 300 Balance -325 -300 Weight 65.799 kg Intake & Output: Intake & Output 09/30/20 10/01/20 10/01/20 21:59 05:59 13:59 Intake Total 200 Output Total 525 300 Balance -325 -300 Weight 65.799 kg Intake: Oral 200 Output: Void Amount 525 300 Other: Urine Appearance Clear Clear Urine Color Bright Yellow Bright Yellow Urine Odor Normal Strong Exam: General: Alert, Awake, No acute Distress Eyes/N/T: EOMI, Head/Neck: neck supple, CV: RRR, No murmurs, Pulm: b/l, no wheezing Abd: soft, nontender, +BS x4 Ext: no clubbing/cyanosis/edema Neuro: Alert, no focal deficits, moves all extremities, Skin: warm/dry OBJ DATA Labs CBC & Chem 7: 09/30/20 05:21 09/30/20 05:21 Labs: Abnormal Lab Results 09/30/20 09/30/20 09/29/20 05:21 05:21 05:19 MPV 10.8 H Lymph % (Auto) 13.6 L Lymph # (Auto) 1.09 L Anion Gap 7.0 L 7.0 L Glucose 127 H Lactate Dehydrogenase 227 H 227 H 09/29/20 05:19 MPV 11.2 H Lymph % (Auto) Lymph # (Auto) 1.16 L Anion Gap Glucose Lactate Dehydrogenase Meds: Medications Acetaminophen (Tylenol) 650 mg PO Q4-6HP PRN; Protocol PRN Reason: Per Pain Protocol/Fever > 101 Last Admin: 09/30/20 23:16 Dose: 650 mg Documented by: Bisacodyl (Dulcolax) 10 mg MT Q2-3DAYS PRN PRN Reason: Constipation Calcium/Vitamin D (Calcium W/Vit D3) 500 mg PO DAILY [facility] Last Admin: 09/30/20 09:35 Dose: 500 mg Documented by: Capsaicin (Zostrix) 1 dose TOPICAL TIDP PRN PRN Reason: Muscle Pain Docusate Sodium (Colace) 100 mg PO BID [facility] Last Admin: 09/30/20 21:17 Dose: 100 mg Documented by: Enoxaparin Sodium (Lovenox) 40 mg SQ DAILY [facility] Ferrous Sulfate (Ferrous Sulfate) [address] [facility] Last Admin: 09/30/20 09:35 Dose: 325 mg Documented by: Guaifenesin/Codeine Phosphate (Robitussin Ac) 10 ml PO Q4HP PRN PRN Reason: Cough Last Admin: 09/28/20 21:18 Dose: 10 ml Documented by: Ceftriaxone Sodium 2 gm/ (Dextrose) 50 mls @ 100 mls/hr IV Q24H [facility]; Protocol Last Infusion: 09/30/20 10:09 Dose: Infused Documented by: Potassium Chloride 40 meq/ (Dextrose) 520 mls @ 130 mls/hr IV UD PRN PRN Reason: K+ = or < 3.5 Acetaminophen (Ofirmev) 650 mg in 65 mls @ 130 mls/hr IV Q6HP PRN; Protocol PRN Reason: Per Pain Protocol/Fever > 101 Magnesium Sulfate (Magnesium Sulfate) 2 gm in 50 mls @ 50 mls/hr IV UD PRN PRN Reason: MG = or < 1.7 Iron Carb/Multivit/Deposit Refund Clerk/Folic Acid (Multivitamin W/Minerals) 1 tab PO DAILY [facility] Last Admin: 09/30/20 09:35 Dose: 1 tab Documented by: Lisinopril (Zestril) 20 mg PO DAILY [facility] Last Admin: 09/30/20 09:35 Dose: Not Given Documented by: Melatonin (Melatonin 3mg Tablet) 3 mg PO HSP PRN PRN Reason: Insomnia Ondansetron HCl (Zofran Odt) 4 mg SL Q4-6HP PRN; Protocol PRN Reason: Nausea And Vomiting Ondansetron HCl (Zofran) 4 mg IV Q4-6HP PRN; Protocol PRN Reason: Nausea And Vomiting Polyethylene Glycol (Miralax) 17 gm PO DAILYP PRN PRN Reason: Constipation Potassium Chloride (Klor-Con) 40 meq PO DAILYP PRN PRN Reason: K+ < 3.5 Last Admin: 09/29/20 16:10 Dose: 40 meq Documented by: Senna/Docusate Sodium (Senna Plus Tablet) 1 tab PO HS [facility] Last Admin: 09/30/20 21:17 Dose: 1 tab Documented by: Sodium Chloride (Saline Flush) 10 ml IV Q8 [facility] Last Admin: 10/01/20 06:19 Dose: 10 ml Documented by: Tramadol HCl (Ultram) 50 mg PO Q4-6HP PRN; Protocol PRN Reason: Per Pain Protocol Last Admin: 09/30/20 21:16 Dose: 50 mg Documented by: A/P Narrative A/P Narrative: A: *Acute hypoxic respiratory: 2/2 pneumonia -On 1L NC to room air this morning *CAP vs Aspiration -Remains intermittently febrile. White count downtrending. COVID-19 negative. -febrile *Complicated (E. coli) UTI: *Profound weakness/deconditioning leading to fall with back contusion: *Right UE lymphedema: continue limb elevation/gentle diuresis *Lower back pain: 2/2 fall. Clinically improving. *HTN: on Toprol Plan: -Continue antibiotics/aspiration precaution -Responding to antibiotics. Continue elevation HOB/aspiration precautions -pending BC/SC -IS/Acapella -CM for SNF placement. Coordination per case management -ppx: lovenox limited code status Time Spent With Patient Time: Total time spent is greater than 50% in coordination of care (as documented) at patient's floor/unit and/or counseling patient: QUALITY Stroke Symptom Onset Unknown: No VTE Deep Vein Thrombosis/Pulmonary Embolism Present on Admission: No
[2020-10-01] MEDS: FERROUS SULFATE 325 MG TABLET PO SCH (08:24)
[2020-10-01] MEDS: MULTIVIT,THER IRON,CA,FA & MIN 1 TABLET PO SCH (08:24)
[2020-10-01] MEDS: DOCUSATE SODIUM 100 MG CAPSULE PO SCH (08:24)
[2020-10-01] MEDS: CALCIUM W/VIT D3 500 MG TABLET PO SCH (08:24)
[2020-10-01] MEDS: traMADol 50 MG TABLET PO PRN (08:25)
[2020-10-01] MEDS: ACETAMINOPHEN 325 MG TABLET PO PRN (08:25)
[2020-10-01] MEDS: cefTRIAXone 2 GM in DEXTROSE 5% IN WATER 50 ML IV SCH (08:34)
[2020-10-01] MEDS ORDERED: ENOXAPARIN 40 MG/0.4 ML SYRINGE SQ SCH (09:00)
--- NOTE | 2020-10-01 09:25 | Discharge Summary ---
Discharge Provider Provider Patient information: Note initiated : 10/01/20 at 9:23 am Service Date, if different from initiated Date: [] Patient: Dorota Reid a 75 y/o F admitted on 09/28/20 for abdominal pain. Chief Complaint: [] Date of admission: 09/28/20 14:16 Discharge date: 10/01/20 Primary care physician: Danisha Perez Consults: 09/26/20 Consult to Physician [CONS] Stat Comment: Consulting Provider: Pk Jolley Reason For Exam: Physician to Consult Discharge Meds Discharge Medications Home Medications ferrous sulfate 324 mg (65 mg iron) tablet,delayed release 324 mg PO QDAY tab 09/18/17 [History Confirmed 09/26/20 Last Taken 09/23/20] zenia citrate-mag ox,aspart-D3 1 each PO DAILY 10/20/19 [History Confirmed 09/26/20 Last Taken 09/25/20] nitrofurantoin monohyd/m-cryst [Macrobid] 100 mg PO Q12H #2 cap 10/01/20 [Rx Last Taken Unknown] COURSE Hospital Course Hospital course: Ms. Reid is a 75 year old F with a history of hypertension/iron deficient anemia who presents to the ER after she fell backwards on her back while trying to step on the stairs. She hit her head and back however did not lose co nsciousness. There was no evident seizure episode or lightheadedness dizziness. She however cannot recollect how she fell other than getting off balance. Initial work-up in the ER was unremarkable with a headache and CT spine for any fractures however patient continues to complain of pain around the back and abdomen. Also UA consistent with pyuria. Patient was started on antibiotics. Based on negative imaging patient was advised discharge home however she was found to be considerably weak unable to get out of bed without full assistance. Due to high risk subsequent fall and risk of injuries hospital service was consulted until a safe discharge plan can be instituted. Patient has a legal guardian and her brother David was unable during my visit. At the time of my visit patient is alert but in moderate distress. She is able to answer most the questions and endorses history as above. She denies fever, diarrhea, dysuria, joint pain, rash, headache endorses to occasional chills and abdominal discomfort. She is independent and receives help from her brother. Does not drive. 09/27-patient is morning was found to be hypoxic with sats around 90%. Antibiotic escalated to cover coverage acquired pathogens. Improving weakness. Ongoing therapies. White count 9000. Urine cultures pending. Continue therapies. Anticipate discharge in 24 hours pending clinical improvement to home with family help. 09/28-patient seen in room. Very lethargic fatigued. On 2 L oxygen. T-max 100.8 last evening. Concerning for worsening pneumonia. Currently on azithromycin/Rocephin. Transition to inpatient status due to worsening hypoxemia. E. coli on urine culture, sensitivities pending. Case discussed with patient's daughter Hugh/brother David. Very of the opinion that patient is much worse than her baseline and clearly will not be able to take care of herself at home. Discussed with case management for possibility of transfer to SNF for continued posthospitalization rehab and a safe transition back home once fully recovered. Continue antibiotic coverage/pulmonary toilet 09/29-patient doing well. Is sitting on chair. Eating breakfast. No overnight fever chills. On 1 to 2 L oxygen. White count stable. Echocardiogram pending. Feels better than previous day. Anticipate discharge on Thursday or Thursday to SNF. Continue therapies/nutrition support 09/30-patient in good spirits this morning. Feels a lot better. Feels her right arm swelling has improved(chronic due to history of mastectomy) overnight T-max 100.8. On 2.5 L oxygen. Anticipate discharge in 24 to 48 hours to SNF pending clinical improvement. No family at bedside. 10/01 No overnight event or new complaints. Patient on room air to 1 L. A: *Acute hypoxic respiratory: 2/2 pneumonia *CAP vs Aspiration *Complicated (E. coli) UTI: *Profound weakness/deconditioning leading to fall with back contusion: *Right UE lymphedema: continue limb elevation/gentle diuresis *Lower back pain: 2/2 fall. Clinically improving. *HTN: on Toprol Discharge diagnosis: Acute hypoxic respite failure pneumonia E. coli UTI Secondary discharge diagnosis: Weakness deconditioning low back pain from fall hypertension Time Spent with Patient Time attestation: Total time spent providing and/or coordinating discharge services: Time spent: Greater than 30 minutes EXAM Constitutional Vitals: Temp Pulse Resp BP Pulse Ox 98.7 F 70 16 108/65 92 10/01/20 07:30 10/01/20 07:30 10/01/20 07:30 10/01/20 07:30 10/01/20 07:30 Discharge Data Data Completed and Pending Labs on day of discharge: Preliminary micro results at discharge 09/30/20 06:55 Blood Culture - Preliminary Blood 09/30/20 06:50 Blood Culture - Preliminary Blood 09/30/20 22:59 Gram Stain - Preliminary Sputum - Induced Discharge Plan Patient/Caregiver Discharge Instructions Instructions: Concussion (ED), Urinary Tract Infection in Older Adults (ED) Activity Restrictions/Additional Instructions: Monitor blood pressure twice daily and bring log to PCP. Restart home enalapril at 10 mg if systolic blood pressure greater than 140. General Information: - Thank you for letting us take care of you today. - Please understand that the examination and treatment that you received here in our emergency department was on an emergency basis only. Although the care you did receive from us here in the emergency department was of the highest quality, it certainly does not take the place of regular medical care obtained from your primary care provider (PCP). - Rest for the next 23 days. - Afterward, perform activity as tolerated. - Stay well hydrated. - Eat a well balanced diet. Medications: - Macrobid 100 mg, 1 tablet twice daily x1 day, start on 10/02/2020. --> We may contact you if we need to change the antibiotic based on your culture and sensitivity report. - OTC acetaminophen 500 mg, 2 tablets every 6-8 hours as needed for pain or fever. - OTC ibuprofen 200 mg, 2 tablets every 8 hours as needed for pain or fever. - Please continue to take all of your previously prescribed, chronic medications, as directed. Follow up: - Please see your Primary Care Provider in the next 7-10 days for an emergency room follow-up visit. I would recommend that repeat chest x-ray be obtained to evaluate whether or not the findings in your chest have changed or worsened. - You are always welcome to return to the emergency department AT ANY TIME if you change or worsen in some way. Prescriptions: New nitrofurantoin monohyd/m-cryst [Macrobid] 100 mg capsule 100 mg PO Q12H Qty: 2 RF: 0 Continued zenia citrate-mag ox,aspart-D3 1 EACH wafer 1 each PO DAILY RF: 0 Discontinued enalapril maleate 20 mg tablet 20 mg PO QDAY RF: 0 No Action ferrous sulfate 324 mg (65 mg iron) tablet,delayed release (DR/EC) 324 mg PO QDAY RF: 0 Follow Up Plan Follow up with: Danisha Perez MD [Primary Care Provider] - Patient Disposition: Xfer SNF Prognosis: Fair Rehab Potential: Fair I certify that the patient requires SNF services: Yes Overall status at discharge: patient is progressing back to baseline Discharge Orders: Discharge Order (Routine); Ordered 10/01/20 [facility] Deep Vein Thrombosis/Pulmonary Embolism Present on Admission: No
[2020-10-01] MEDS: LISINOPRIL 20 MG TABLET PO SCH (10:03)
== END 2020-10-01 11:00 | DRG 189 ==
LOC: MEDSUR 10:26 → ED 10:26 → MEDSUR 15:02
PROVIDERS: ADMIT Internal Medicine; ATTEND Internal Medicine